=== PATIENT | female | born 1970 | race Caucasian/White ===

== ENCOUNTER 2019-08-11 19:35 | Observation (INO) | payer OTHER, SELFPAY ==
[2019-08-11 19:50] VITALS: BP 138/68; PULSE 103; RESP 18; TEMP 37; O2SAT 97; BMI 30.7
--- NOTE | 2019-08-11 19:51 | ED.NEUROSD ---
HPI - Neuro Symptoms/Deficit General Chief Complaint: Altered Mental Status Stated Complaint: disoriented at times Time Seen by Provider: 08/11/19 19:50 Source: patient and family () Mode of arrival: Ambulatory Limitations: no limitations History of Present Illness HPI Narrative: This is a 49-year-old female who comes to the emergency department with complaint of confusion, a intermittent lateral gaze to the left. Patient's symptoms started on Friday. Her stated he was contacted by her boss, she was part of a teleconference from home. Patient when he arrived seemed confused, her speech seemed a little bit drunk. states that she seemed confused and had difficulty performing certain tasks he did not appreciate any facial droop. Patient has not had any numbness, tingling or weakness in her extremities. She does have little bit of an abnormal gait secondary to hip dislocation was she was young and short leg on the right. But no new changes with her gait. She states that she had a headache that day she had 3 episodes of vomiting. Since then she has not had any additional headache. She has not had any additional vomiting. She had noted that sometimes her days will go to the left of for a couple seconds and then improved. She denies chest pain, shortness of breath, no GI issues. Yesterday she had some very mild symptoms with lateral gaze and some mild pressure on the top of her head. Today she has not had any headache. Her noted that she again seemed a little confused he could get her to open her phone but she could not get on to Facebook or text. At this time she seems back to normal. She does have a history of hypertension, hypothyroidism and is on a estrogen supplement. She is not on any thinners. She has had a hysterectomy, cholecystectomy and surgery for her right hip which dislocated his young child. No tobacco, very rare alcohol with none recently and no illicit. No family history of neurologic events, cardiac issues or similar situations. Related Data Home Medications Medication Instructions Recorded Confirmed estradiol 0.5 mg PO DAILY 08/11/19 08/11/19 felodipine 10 mg PO DAILY 08/11/19 08/11/19 levothyroxine 50 mcg PO DAILY 08/11/19 08/11/19 losartan 100 mg PO DAILY 08/11/19 08/11/19 Allergies Allergy/AdvReac Type Severity Reaction Status Date / Time amoxicillin Allergy Verified 08/11/19 20:57 Review of Systems Review of Systems ROS Unobtainable: All systems reviewed & are unremarkable except as noted in HPI and below Patient History Medical History (Updated 08/11/19 @ 22:55 by Polina Marsh DO) Hypertension (Acute) Hypothyroid (Acute) Family History (Updated 08/12/19 @ 00:16 by DAGOBERTO Escalona) Mother Hypertension Diabetes type 2, controlled Father Hypertension Diabetes mellitus Insulin dependent diabetes mellitus Social History household members: spouse Smoking Status: Never smoker alcohol intake: current Smoking Status: Never smoker alcohol intake frequency: holidays/special occasions only Substance Use Type: does not use Exam Narrative Exam Narrative: GEN: well nourished, well appearing female, alert and oriented x 3, patient appears to be in mild distress. HEENT: Atraumatic, pupils are equal round reactive to light, extraocular movements are intact, nares are clear, TMs are clear with no fluid, there is no conjunctival pallor. Throat is clear without any exudates, erythema, tonsillar enlargement or uvular deviation HEART: Regular rate and rhythm without murmur, clicks, rubs. Pulses are equal in upper and lower extremities LUNGS:Lungs clear to auscultation, no wheezes, rales, crackles, chest moves symmetrically ABD:bowel sounds normal, soft, non-tender, no guarding, rebound, rigidity, no masses noted, no hepatosplenomegaly :No CVA tenderness MSCL: Non-tender, no muscle atrophy, muscles strength 5/5 upper and lower extremities, full range of motion NEURO:CN 2-12 intact, sensation normal, finger nose finger test normal, heel salgado test normal on left, mild difficulty on right but patient has right hip dislocation. Initial Vital Signs Initial Vital Signs: Vital Signs Temperature 98.6 F 08/11/19 19:50 Pulse Rate 103 H 08/11/19 19:50 Respiratory Rate 18 08/11/19 19:50 Blood Pressure 138/68 08/11/19 19:50 Pulse Oximetry 97 08/11/19 19:50 Scores NIH Stroke Scale Level of Conciousness: Alert, keenly responsive Ask month/age: Answers both questions correctly. Open/close eyes, close hand: Performs both tasks correctly Best gaze horizontal: Normal Visual roman: No visual loss Facial palsy: Normal symetrical movement Left arm drift: No drift for full 10 sec Right arm drift: No drift for full 10 sec Left leg drift: No drift for full 10 sec Right leg drift: No drift for full 10 sec Limb ataxia: Absent Sensory on face/arms/legs: Normal, no sensory loss Best language: No aphasia, normal Dysarthria: Normal Extinction or inattention: No abnormality Total NIH Stroke scale score: 0 Course Orders Ordered: ED Orders 08/11/19 20:[address] angio head and neck Stat EKG-12 Lead Stat 08/11/19 20:15 Basic Metabolic Panel Stat Complete Blood Count AUTO DIFF Stat Ethanol (ETOH) Stat Partial Thromboplastin Time Stat Prothrombin Time INR Stat Thyroid Stimulating Hormone Stat Troponin & CK Cardiac Panel Stat 08/11/19 21:22 Urine Drug Screen, Rapid Stat 08/11/19 22:51 MR head/brain wo/w con Stat Acetaminophen (Tylenol) 650 mg PO Q6HR PRN PRN Reason: Fever/Mild Pain (1-3) Last Admin: 08/12/19 01:44 Dose: 650 mg Documented by: TANESHA Enoxaparin Sodium (Lovenox) 40 mg SUBCUT DAILY [facility] Sodium Chloride (Normal Saline 0.9%) 1,000 mls @ 100 mls/hr IV CONT ANTOINE Last Admin: 08/12/19 00:54 Dose: 100 mls/hr Documented by: TANESHA Influenza Virus Vaccine (Flu Vaccine) 0.5 ml IM .ONCE ONE Stop: 08/12/19 09:06 Levothyroxine Sodium (Synthroid) 50 mcg PO QACBREAK [facility] Losartan Potassium (Cozaar) 100 mg PO DAILY [facility] Naloxone HCl (Narcan) 0.2 mg IV Q2MIN PRN PRN Reason: Opiate Reversal Non-Formulary Medication (Felodipine) 10 mg PO DAILY [facility] Ondansetron HCl (Zofran) 4 mg IV Q8HR PRN PRN Reason: Nausea And Vomiting Discontinued Medications Sodium Chloride (Normal Saline 0.9%) 1,000 mls @ 150 mls/hr IV CONT ANTOINE Last Infusion: 08/12/19 00:00 Dose: 0 mls/hr Documented by: Admin: 08/11/19 20:40 Dose: 150 mls/hr Documented by: JONG Vital Signs Vital signs: Vital Signs - 8 hr 08/11/19 19:50 08/11/19 20:46 08/11/19 21:00 Temperature 98.6 F Pulse Rate 103 H 88 84 Respiratory Rate 18 16 17 Blood Pressure 138/68 Blood Pressure [Right Arm] 132/62 138/69 Pulse Oximetry 97 98 98 08/11/19 23:00 Temperature Pulse Rate 79 Respiratory Rate 15 Blood Pressure Blood Pressure [Right Arm] 125/75 Pulse Oximetry 97 MDM - Neuro Symptoms/Deficit Lab Data Attestation: I reviewed the patient's lab results. Result diagrams: 08/11/19 20:15 08/11/19 20:15 Labs: Lab Results 08/11/19 08/11/19 08/11/19 Range/Units 20:15 20:15 20:15 WBC 10.0 (4.5-11.0) X10^3/uL RBC 4.89 (4.0-5.2) X10^6/uL Hgb 14.2 (12.0-16.0) g/dL Hct 43.0 (36-46) % MCV 88.0 (80-100) fL MCH 29.1 (26-34) PG MCHC 33.1 (30-36) % RDW 13.6 (11.6-14.8) % Plt Count 217 (150-400) X10^3/uL Neut % (Auto) 84.5 H (50-75) % Lymph % (Auto) 10.5 L (25-40) % [place]cl[place] % (Auto) 4.6 (3-14) % Eos % (Auto) 0.0 L (2-4) % Baso % (Auto) 0.4 (0-2) % Neut # (Auto) 8400 H (7421-4911) /uL Lymph # (Auto) 1000 L (1238-2806) /uL [place] # (Auto) 500 (0-900) /uL Eos # (Auto) 0 (0-450) /uL Baso # (Auto) 0 (0-100) /uL PT 12.0 (10.1-12.7) SECONDS INR 1.0 (0.9-1.3) APTT 27 (26.4-36.2) SECONDS Sodium (137-145) mmol/L Potassium (3.4-5.1) mmol/L Chloride (98-107) mmol/L Carbon Dioxide (22-32) mmol/L BUN (7-17) mg/dL Creatinine (0.52-1.04) mg/dL Estimated GFR (>60) mL/min BUN/Creatinine Ratio (6-22) Glucose (70-100) mg/dL Calcium (8.4-10.2) mg/dL Total Creatine Kinase 235 H (30-135) U/L CK-MB (CK-2) 0.66 (<2.37) ng/mL CK-MB (CK-2) Rel Index 0.3 L (1.5-5.0) % Troponin I < 0.012 (0.01-0.034) ng/mL TSH (0.47-4.68) uIU/mL U Opiates 300ng/mL cut (Negative) Ur Oxycodone Screen (Negative) Urine Methadone Screen (Negative) Ur Barbiturates Screen (Negative) U Tricyclic Antidepress (Negative) Ur Phencyclidine Scrn (Negative) Ur Amphetamines Screen (Negative) U Methamphetamines Scrn (Negative) Ur MDMA Scrn (Ecstasy) (Negative) U Benzodiazepines Scrn (Negative) Urine Cocaine Screen (Negative) U Marijuana (THC) Screen (Negative) Ethyl Alcohol < 10 ( - 10) mg/dL 08/11/19 08/11/19 08/11/19 Range/Units 20:15 20:15 21:22 WBC (4.5-11.0) X10^3/uL RBC (4.0-5.2) X10^6/uL Hgb (12.0-16.0) g/dL Hct (36-46) % MCV (80-100) fL MCH (26-34) PG MCHC (30-36) % RDW (11.6-14.8) % Plt Count (150-400) X10^3/uL Neut % (Auto) (50-75) % Lymph % (Auto) (25-40) % [place] % (Auto) (3-14) % Eos % (Auto) (2-4) % Baso % (Auto) (0-2) % Neut # (Auto) (5500-9227) /uL Lymph # (Auto) (2720-7285) /uL [place] # (Auto) (0-900) /uL Eos # (Auto) (0-450) /uL Baso # (Auto) (0-100) /uL PT (10.1-12.7) SECONDS INR (0.9-1.3) APTT (26.4-36.2) SECONDS Sodium 142 (137-145) mmol/L Potassium 3.9 (3.4-5.1) mmol/L Chloride 107 (98-107) mmol/L Carbon Dioxide 26 (22-32) mmol/L BUN 19 H (7-17) mg/dL Creatinine 0.79 (0.52-1.04) mg/dL Estimated GFR > 60.0 (>60) mL/min BUN/Creatinine Ratio 24.1 H (6-22) Glucose 110 H (70-100) mg/dL Calcium 10.1 (8.4-10.2) mg/dL Total Creatine Kinase (30-135) U/L CK-MB (CK-2) (<2.37) ng/mL CK-MB (CK-2) Rel Index (1.5-5.0) % Troponin I (0.01-0.034) ng/mL TSH 2.60 (0.47-4.68) uIU/mL U Opiates 300ng/mL cut Negative (Negative) Ur Oxycodone Screen Negative (Negative) Urine Methadone Screen Negative (Negative) Ur Barbiturates Screen Negative (Negative) U Tricyclic Antidepress Negative (Negative) Ur Phencyclidine Scrn Negative (Negative) Ur Amphetamines Screen Negative (Negative) U Methamphetamines Scrn Negative (Negative) Ur MDMA Scrn (Ecstasy) Negative (Negative) U Benzodiazepines Scrn Negative (Negative) Urine Cocaine Screen Negative (Negative) U Marijuana (THC) Screen Negative (Negative) Ethyl Alcohol ( - 10) mg/dL Urine Dip Bedside Urine Glucose Negative Bedside Urine Bilirubin - Negative Bedside Urine Ketone +/- 5 Urine Specific [place] 1.015 Bedside Urine pH 6.0 Bedside Urine Protein +/- 15 Bedside Urine Urobilinogen - Negative Bedside Urine Nitrite - Negative Bedside Urine Leukocytes - Negative Esterase Imaging Data CT scan - head: Radiologist's Impression: [address] [address] XRay Report Signed Patient: Vinh Dan VMR#: [id number] : 05/23/1942Acct:[id number] Age/Sex: 77 / MDate of Service: 08/11/19 Loc: ED Accession Number: [id number] Procedure: XR hip w pel if done RT 2V Ordering Provider: Polina Marsh D.O. PROCEDURE: XR HIP W PEL IF DONE RT 2V INDICATIONS: swelling of right thigh, pain of thigh TECHNIQUE: AP pelvis with lateral view(s) of the right hip(s). COMPARISON: None. FINDINGS: Bones: No fractures or dislocations. Pelvic ring appears intact. Mild to moderate right hip joint osteoarthritic changes are seen. No evidence of avascular necrosis. No suspicious bony lesions. Soft tissues: The visualized bowel gas pattern is normal. No suspicious soft tissue calcifications. IMPRESSION: Mild to moderate right hip joint osteoarthritis. No acute hip fracture or dislocation. No evidence of avascular necrosis. Dictated by: Azam Schwartz M.D. on 08/11/2019 at 19:51 Approved by: Azam Schwartz M.D. on 08/11/2019 at 19:52 CTA - brain/neck: Radiologist's Impression: [place] [address] CT Scan Report Signed Patient: Zo Villasenor LMR#: [id number] : 1970Acct:[id number] Age/Sex: 49 / FDate of Service: 08/11/19 Loc: ED Accession Number: [id number] Procedure: CT angio head and neck Ordering Provider: Polina Marsh D.O. PROCEDURE: CT ANGIO HEAD AND NECK INDICATIONS: confusion, clayton, vomited friday, lateral gaze intermittent TECHNIQUE: Pre-contrast 4.5 mm thick sections acquired from the foramen magnum to the vertex. After the administration of intravenous contrast, 1 mm thick sections acquired from the aortic arch through the [place] of [place]. Post-contrast 4.5 mm thick sections then re-acquired from the foramen magnum to the vertex. 3-dimensional jnfksrw-wuftqwmru-uxpnwfwpav (MIP) and/or volume rendering reformats were acquired of the central intracranial vasculature and neck separately. COMPARISON: None. FINDINGS: Image quality: Excellent. BRAIN: CSF spaces: Ventricles are normal in size and shape. Basal cisterns are patent. No extra-axial fluid collections. Brain: No midline shift. No intracranial bleeds or masses. Hanna-white matter interface appears intact. No area of abnormal intracranial enhancement is seen. Skull and face: Calvarium and facial bones appear intact, without suspicious lesions. Orbits appear normal. Sinuses: Sinuses and mastoids are clear. HEAD CT ANGIOGRAPHY: Anterior circulation: Intracranial internal carotid arteries are normal in size and flow. The flow within the paired anterior cerebral arteries is normal and symmetric. The flow within the middle cerebral arteries is normal and symmetric. The anterior communicating artery is seen. No aneurysms are seen. Posterior circulation: Visualized portions of the vertebral arteries demonstrate normal caliber, and join to form a normal appearing basilar artery. Flow within the posterior cerebral arteries is normal and symmetric. No aneurysms are seen. NECK CT ANGIOGRAPHY: Carotid system: The great vessels demonstrate a conventional anatomy as they arise from the aortic arch. The origins of the common carotid arteries appear patent. The common carotid arteries demonstrate normal caliber and courses. The bifurcation regions are both widely patent. The internal carotid arteries demonstrate normal calibers and courses. Posterior circulation: The origins of the vertebral arteries both appear widely patent. The more superior extracranial portions of both vertebral arteries also demonstrate normal courses and calibers. They join to form a normal appearing basilar artery. Soft tissues: Visualized neck soft tissues demonstrate no suspicious abnormalities. Bones: No suspicious bony lesions. Visualized cervical spine appears normally aligned. IMPRESSION: 1. No CT evidence of acute intracranial pathology. No area of abnormal intracranial enhancement. 2. No hemodynamically significant stenosis or aneurysm is seen in intracranial circulation. 3. No hemodynamically significant stenosis is seen in bilateral neck arteries. Any quantitative measurements of stenosis were performed using NASCET criteria. Dictated by: Azam Schwartz M.D. on 08/11/2019 at 20:59 Approved by: Azam Schwartz M.D. on 08/11/2019 at 21:04 ECG Data Attestation: I personally reviewed and interpreted this ECG as follows: Interpretation: Sinus rhythm with sinus arrhythmia rate of 74 P are 134 QRS [address] elevation or depression noted. MDM Narrative Medical decision making narrative: Patient comes in with a description of confusion or disorientation. And also occasional lateral gaze deviation. Sounds like it is very short-lived. Patient does not have any other clear localized neurologic findings and her NIH scale today is 0. Patient's head CT and angiography are negative no significant stenosis. CBC is normal with a left shift of 84%. Coags are negative, BUN 19 glucose is 110 with a total CK of 235 and a negative-troponin. TSH shows no acute change, EKG no change. Patient seems less likely to have a stroke or TIA, she did have 1 episode of the lateral gaze on exam but was very short lived and difficult to truly evaluate. Patient case was discussed with Dr. Crystal Hollins from [facility]. She recommends MRI with and without of the brain for evaluation of stroke although this would be an unlikely finding. If this is negative she would recommend next lumbar puncture for evaluation of possibly an atypical Guillain-Windsor or myasthenia gravis presentation. Suspicion for infectious causes are low at this time. Discussed with JOHN Olivia who plans to include possible seizure in differential as well. Discharge Plan Departure Patient Disposition: Admitted as Observation Clinical Impression: Intermittent confusion, Alternating skew deviation on lateral gaze Discharge Date/Time: 08/12/19 00:00 Referrals: London Bradford MD [Primary Care Provider] - Admit Date/Time: 08/11/19 23:00 Admit Provider: Kaya Olivia
--- NOTE | 2019-08-11 20:13 | DI.CT.S_ITS ---
PROCEDURE: CT STROKE INDICATIONS: confusion, clayton, vomited friday, lateral gaze intermittent TECHNIQUE: Noncontrast 4.5 mm thick angled axial sections acquired from the foramen magnum to the vertex, with coronal reformats. For radiation dose reduction, the following was used: automated exposure control, adjustment of mA and/or kV according to patient size. COMPARISON: None. FINDINGS: Image quality: Excellent. CSF spaces: Basal cisterns are patent. No extra-axial fluid collections. Ventricles are normal in size and shape. Brain: No midline shift. No intracranial masses or hemorrhage. Hanna-white matter interface is normal. Skull and face: Calvarium and visualized facial bones are intact, without suspicious lesions. Sinuses: Visualized sinuses and mastoids are clear. IMPRESSION: No CT evidence of acute intracranial pathology. Findings were reported to Dr. Marsh in the ER at 8:42 PM on 08/11/19. This study fulfills neurological imaging criteria for inclusion or exclusion of acute stroke therapies based on available published neurological imaging guidelines. Dictated by: Azam Schwartz M.D. on 08/11/2019 at 20:41 Approved by: Azam Schwartz M.D. on 08/11/2019 at 20:42
--- NOTE | 2019-08-11 20:13 | DI.CT.S_ITS ---
PROCEDURE: CT ANGIO HEAD AND NECK INDICATIONS: confusion, clayton, vomited stefany, lateral gaze intermittent TECHNIQUE: Pre-contrast 4.5 mm thick sections acquired from the foramen magnum to the vertex. After the administration of intravenous contrast, 1 mm thick sections acquired from the aortic arch through the [place] of [place]. Post-contrast 4.5 mm thick sections then re-acquired from the foramen magnum to the vertex. 3-dimensional inrrnzk-ddtsisgbm-hyddrxuijm (MIP) and/or volume rendering reformats were acquired of the central intracranial vasculature and neck separately. COMPARISON: None. FINDINGS: Image quality: Excellent. BRAIN: CSF spaces: Ventricles are normal in size and shape. Basal cisterns are patent. No extra-axial fluid collections. Brain: No midline shift. No intracranial bleeds or masses. Hanna-white matter interface appears intact. No area of abnormal intracranial enhancement is seen. Skull and face: Calvarium and facial bones appear intact, without suspicious lesions. Orbits appear normal. Sinuses: Sinuses and mastoids are clear. HEAD CT ANGIOGRAPHY: Anterior circulation: Intracranial internal carotid arteries are normal in size and flow. The flow within the paired anterior cerebral arteries is normal and symmetric. The flow within the middle cerebral arteries is normal and symmetric. The anterior communicating artery is seen. No aneurysms are seen. Posterior circulation: Visualized portions of the vertebral arteries demonstrate normal caliber, and join to form a normal appearing basilar artery. Flow within the posterior cerebral arteries is normal and symmetric. No aneurysms are seen. NECK CT ANGIOGRAPHY: Carotid system: The great vessels demonstrate a conventional anatomy as they arise from the aortic arch. The origins of the common carotid arteries appear patent. The common carotid arteries demonstrate normal caliber and courses. The bifurcation regions are both widely patent. The internal carotid arteries demonstrate normal calibers and courses. Posterior circulation: The origins of the vertebral arteries both appear widely patent. The more superior extracranial portions of both vertebral arteries also demonstrate normal courses and calibers. They join to form a normal appearing basilar artery. Soft tissues: Visualized neck soft tissues demonstrate no suspicious abnormalities. Bones: No suspicious bony lesions. Visualized cervical spine appears normally aligned. IMPRESSION: 1. No CT evidence of acute intracranial pathology. No area of abnormal intracranial enhancement. 2. No hemodynamically significant stenosis or aneurysm is seen in intracranial circulation. 3. No hemodynamically significant stenosis is seen in bilateral neck arteries. Any quantitative measurements of stenosis were performed using NASCET criteria. Dictated by: Azam Schwartz M.D. on 08/11/2019 at 20:59 Approved by: Azam Schwartz M.D. on 08/11/2019 at 21:04
--- NOTE | 2019-08-11 20:35 | PC.NURSE ---
Pt states confusion with intermittent L lateral eye gaze since last Friday, seen Friday at [facility]. Pt reports pt didn't remember how to use her phone, and had stroke workup which was negative and outpt MRI appt tomorrow. PT reporting today dizziness, vertigo and a small episode of urinary incontinence and disorientation after waking from nap from [id number]. Pt at baseline gait per and pt, hx of hip dislocation. Denies any speech changes, facial droop or numbness/tingling in extremities. Not on blood thinners and states she is feeling alot better and more alert since her arrival. at bedside.
[2019-08-11] MEDS: SODIUM CHLORIDE 0.9% 1,000 ML 150 ML IV (20:40)
[2019-08-11 20:42] LABS: Add Manual Diff / Slide Review NO; Basophils Absolute Auto 0 /uL (0-100); Basophils Percent Auto 0.4 % (0-2); Eosinophils Absolute Auto 0 /uL (0-450); Hemoglobin 14.2 g/dL (12.0-16.0); Lymphocytes Absolute Auto 1000 /uL (1100-4500); Lymphocytes Percent Auto 10.5 % (25-40); Mean Corpuscular HGB Conc 33.1 % (30-36); Mean Corpuscular Hemoglobin 29.1 PG (26-34); Monocytes Absolute Auto 500 /uL (0-900); Monocytes Percent Auto 4.6 % (3-14); Neutrophils Absolute Auto 8400 /uL (1500-7000); Neutrophils Percent Auto 84.5 % (50-75); Platelet Count 217 X10^3/uL (150-400); Red Blood Cell Count 4.89 X10^6/uL (4.0-5.2); Red Cell Distribution Width 13.6 % (11.6-14.8)
[2019-08-11 20:46] VITALS: BP 132/62; PULSE 88; RESP 16; O2SAT 98
[2019-08-11 20:48] LABS: PTT Partial Thromboplastin Tim 27 SECONDS (26.4-36.2)
[2019-08-11 20:52] LABS: Creatine Kinase 235 U/L (30-135); Ethanol (ETOH) < 10 mg/dL
[2019-08-11 20:53] LABS: BUN Creatinine Ratio 24.1 (6-22); Blood Urea Nitrogen 19 mg/dL (7-17); Calcium 10.1 mg/dL (8.4-10.2); Carbon Dioxide 26 mmol/L (22-32); Chloride 107 mmol/L (98-107); Estimated Glomerular Filt Rate > 60.0 mL/min (>60); Glucose 110 mg/dL (70-100); HEMOLYSIS < 15 (0-50); Potassium 3.9 mmol/L (3.4-5.1); Sodium 142 mmol/L (137-145)
[2019-08-11 21:00] VITALS: BP 138/69; PULSE 84; RESP 17; O2SAT 98
[2019-08-11 21:04] LABS: Troponin I < 0.012 ng/mL (0.01-0.034)
[2019-08-11 21:07] LABS: CKMB % Relative Index 0.3 % (1.5-5.0); Creatine Kinase MB 0.66 ng/mL (<2.37)
[2019-08-11 21:39] LABS: Ur Creatinine 20 (Normal); Ur Specific Gravity 1.025 (Normal); Urine pH 5 (Normal)
[2019-08-11 21:40] LABS: UR Morphine/Opiate cutoff 300 Negative (Negative); Urine Amphetamines Negative (Negative); Urine Barbiturates Negative (Negative); Urine Benzodiazepines Negative (Negative); Urine Cocaine Negative (Negative); Urine MDMA Negative (Negative); Urine Methadone Negative (Negative); Urine Methamphetamines Negative (Negative); Urine Oxycodone Negative (Negative); Urine Phencyclidine Negative (Negative); Urine Tetrahydrocannabinol Negative (Negative); Urine Tricyclic Antidepressant Negative (Negative)
--- NOTE | 2019-08-11 22:51 | DI.MRI.S_ITS ---
PROCEDURE: MR HEAD/BRAIN WO/W CON INDICATIONS: intermittent confusion, lateral gaze left eye intermittent TECHNIQUE: Noncontrast axial T1 spin echo, axial T2 fast spin echo, sagittal and axial FLAIR, coronal T2 fast spin echo, axial gradient echo, axial diffusion and ADC through the brain. After the administration of contrast, axial and coronal 3D VIBE or T1 spin echo with fat saturation through the brain. COMPARISON: [facility], CT, CT ANGIO HEAD AND NECK, 08/11/2019, 20:32. [facility], CT, CT STROKE, 08/11/2019, 20:12. FINDINGS: Image quality: Excellent. CSF Spaces: Basal cisterns are patent. No extra-axial fluid collections. Ventricles are normal in size and shape. Brain: No midline shift. No intracranial bleeds or masses. No abnormal intracranial enhancement. The brainstem appears normal. Diffusion-weighted images demonstrate no acute ischemic insults. No chronic ischemic insults. Normal intravascular flow voids are present. Skull and face: Calvarial marrow is normal in signal. Orbits appear normal. Sinuses: There is left maxillary sinus mucosal thickening. The mastoids appear clear. IMPRESSION: 1. No acute intracranial abnormalities. 2. Left maxillary sinus mucosal thickening. Dictated by: Jean Scanlon M.D. on 08/12/2019 at 11:20 Approved by: Jean Scanlon M.D. on 08/12/2019 at 11:25
[2019-08-11 23:00] VITALS: BP 125/75; PULSE 79; RESP 15; O2SAT 97
--- NOTE | 2019-08-12 00:10 | P.HP_ITS ---
History of Present Illness History of Present Illness Date Patient Seen: 08/11/19 Time Patient Seen: 23:30 Chief complaint: disoriented at times Narrative: Zo Villasenor is a 49-year-old female with diagnoses of hypertension, hypothyroidism presented with a 3 day history of headaches, confusion, left- sided weakness, and visual changes. Her symptoms started of this past Friday which was 2 days ago with a really bad headache that lasted for 3 hours. 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 She stated that she could not figure out how to turn on her computer or operate her cellphone. She then broke for lunch and apparently did not log but back in, her inspection and testing supervisor became concerned and called her at his workplace. On Friday she took the day off and started to notice that her left eye started to twitch. Today she resumed working at home and then around noon took a nap and apparently slept until 6:00 p.m. she then woke up with pressure on the top of her head. Her came from from work and found her to be confused again and not really responding. She was had urinated on herself and had bit her lower lip. Today he stated that she started to have bilateral abnormal eye movements he refers to as looking like a type brighter moving back and forth. Stated that she was dizzy when she woke up and confused. She denies fever, shortness of breath, palpitations, she did wake up feeling nauseous. She had 1 incontinence episode but denies any diarrhea or constipation. Patient History Medical History (Updated 08/11/19 @ 22:55 by Polina Marsh DO) Hypertension (Acute) Hypothyroid (Acute) Family & Social History Family History (Updated 08/12/19 @ 00:16 by DAGOBERTO Escalona) Mother Hypertension Diabetes type 2, controlled Father Hypertension Diabetes mellitus Insulin dependent diabetes mellitus Safety & Behavioral: Feels Safe in Current Yes Environment Been Physically Hurt or No Threatened By a Person Tobacco & Substance use: Smoking Status Never smoker alcohol intake frequency holiday/special occasion Substance Use Type does not use Meds Home Medications and Allergies Home Medications Medication Instructions Recorded Confirmed Type estradiol 0.5 mg PO DAILY 08/11/19 08/11/19 History felodipine 10 mg PO DAILY 08/11/19 08/11/19 History levothyroxine 50 mcg PO DAILY 08/11/19 08/11/19 History losartan 100 mg PO DAILY 08/11/19 08/11/19 History Allergies Allergy/AdvReac Type Severity Reaction Status Date / Time amoxicillin Allergy Verified 08/11/19 20:57 Review of Systems Review of Systems ROS: Yes All systems reviewed with the patient and are negative except as otherwise documented Exam Vital Signs (past 8 hours): - 08/11/19 19:50 08/11/19 20:46 08/11/19 21:00 Temperature 98.6 F Pulse Rate 103 H 88 84 Respiratory Rate 18 16 17 Blood Pressure 138/68 Blood Pressure [Right Arm] 132/62 138/69 Pulse Oximetry 97 98 98 08/11/19 23:00 Temperature Pulse Rate 79 Respiratory Rate 15 Blood Pressure Blood Pressure [Right Arm] 125/75 Pulse Oximetry 97 Oxygen Delivery Method Room Air Narrative Exam Narrative: Gen: Alert, oriented, well-developed 49 y.o. female, appears fatigued HEENT: normocephalic, atraumatic, conjunctiva clear, sclera non-icteric, oral mucosa pink and moist Neck: supple, full ROM Resp: Lungs CTA, non-labored breathing CV: RRR, no murmur or rubs Abd: soft, non-tender, normoactive BTs Skin: no lesions or rashes, dry and intact Neuro: Has periodic episodes of horizontal nystagmus worse laterally, triggered when waking up or opening eyes after prolonged closure. Alert and oriented X 4 w/no focal deficits Extremities: moves all 4 extremities, is ambulatory, negative Lavon?s sign Psyche: normal mood and affect. Objective Labs Result Diagrams: 08/11/19 20:15 08/11/19 20:15 Labs: Laboratory Results - last 24 hr 08/11/19 08/11/19 08/11/19 20:15 20:15 20:15 WBC 10.0 RBC 4.89 Hgb 14.2 Hct 43.0 MCV 88.0 MCH 29.1 MCHC 33.1 RDW 13.6 Plt Count 217 Neut % (Auto) 84.5 H Lymph % (Auto) 10.5 L Lawrence % (Auto) 4.6 Eos % (Auto) 0.0 L Baso % (Auto) 0.4 Neut # (Auto) 8400 H Lymph # (Auto) 1000 L Lawrence # (Auto) 500 Eos # (Auto) 0 Baso # (Auto) 0 PT 12.0 INR 1.0 APTT 27 Sodium Potassium Chloride Carbon Dioxide BUN Creatinine Estimated GFR BUN/Creatinine Ratio Glucose Calcium Total Creatine Kinase 235 H CK-MB (CK-2) 0.66 CK-MB (CK-2) Rel Index 0.3 L Troponin I < 0.012 TSH U Opiates 300ng/mL cut Ur Oxycodone Screen Urine Methadone Screen Ur Barbiturates Screen U Tricyclic Antidepress Ur Phencyclidine Scrn Ur Amphetamines Screen U Methamphetamines Scrn Ur MDMA Scrn (Ecstasy) U Benzodiazepines Scrn Urine Cocaine Screen U Marijuana (THC) Screen Ethyl Alcohol < 10 08/11/19 08/11/19 08/11/19 20:15 20:15 21:22 WBC RBC Hgb Hct MCV MCH MCHC RDW Plt Count Neut % (Auto) Lymph % (Auto) Lawrence % (Auto) Eos % (Auto) Baso % (Auto) Neut # (Auto) Lymph # (Auto) Lawrence # (Auto) Eos # (Auto) Baso # (Auto) PT INR APTT Sodium 142 Potassium 3.9 Chloride 107 Carbon Dioxide 26 BUN 19 H Creatinine 0.79 Estimated GFR > 60.0 BUN/Creatinine Ratio 24.1 H Glucose 110 H Calcium 10.1 Total Creatine Kinase CK-MB (CK-2) CK-MB (CK-2) Rel Index Troponin I TSH 2.60 U Opiates 300ng/mL cut Negative Ur Oxycodone Screen Negative Urine Methadone Screen Negative Ur Barbiturates Screen Negative U Tricyclic Antidepress Negative Ur Phencyclidine Scrn Negative Ur Amphetamines Screen Negative U Methamphetamines Scrn Negative Ur MDMA Scrn (Ecstasy) Negative U Benzodiazepines Scrn Negative Urine Cocaine Screen Negative U Marijuana (THC) Screen Negative Ethyl Alcohol Assessment & Plan Assessment & Plan narrative: Zo Villasenor will be admitted overnight for observation status and to undergo a MRI of the head with and without contrast in the morning. 1. Left-sided weakness with an abnormal ocular movement disorder, acute, present on admission - Stroke needs to be ruled out prior to evaluation for other possible neurologic al conditions - Differential diagnosis includes Guillain-[place], Myasthenia gravis, seizure disorder, hemiplegic migraine - Neurology was consulted by the ED who spoke to Crystal Hollins - MRI with and without contrast of the head. 2. Essential hypertension, appears to be well controlled and chronic, present on admission - Continue her home dose of Fallot to pain 10 mg p.o. daily and losartan 100 mg p.o. daily 3. Hypothyroidism, chronic, well controlled and present on admission - TSH was normal - Continue home dose of levothyroxine 50 mcg p.o. daily FEN: IV normal saline at 100 ml/hour, low sodium diet, chemistries in the am Patient is placed into observation as her stay is not likely to exceed 2 midnights. VTE Prophylaxis: Bilateral SCDs, enoxaparin 40 mg subcu daily Medications reconciled: Yes Disposition: Probable discharge home with neurology follow-up Code Status: Full code
[2019-08-12 00:30] VITALS: BP 142/81; PULSE 89; RESP 20; TEMP 36.6; O2SAT 97
[2019-08-12 00:48] VITALS: O2SAT 98
[2019-08-12 00:54] VITALS: BMI 39.8
[2019-08-12] MEDS: SODIUM CHLORIDE 0.9% 1,000 ML 100 ML IV (00:54)
[2019-08-12] MEDS: ACETAMINOPHEN 325 MG TABLET 650 MG PO ×2 (01:44→09:07)
--- NOTE | 2019-08-12 02:02 | PC.ADMIT ---
Patient admitted to room 208 per stretcher from ER. Is alert and oriented. Has been having some intermittent left gaze extraocular movements. Breath sounds CTA with RA sat of 98%. HRR; telemetry reading was SR. Denies nausea. BT present and abdomen is soft. Reports episode of incontinence prior to admission but normally is continent of B&B. Is able to move self in bed. Providing SBA when up to bathroom for safety. Patient does have an unsteady gait which is her normal; denies weakness. Complains of mild pressure type discomfort in head so medicated with Tylenol per her request. Calf SCD's placed bilateral. Seizure pads in place. NIH is 0. Reviewed plan of care with patient; verbalizes understanding. Instructed in use of call light and bed controls. [facility] Admission Note: The patient,Zo Villasenor,49 y/o, was given written information regarding hospital policies, unit procedures and contact persons. Patient's smoking status: Never smoker. Vital Signs - 8 hr 08/11/19 19:50 08/11/19 20:46 08/11/19 21:00 Temperature 98.6 F Pulse Rate 103 H 88 84 Respiratory Rate 18 16 17 Blood Pressure 138/68 Blood Pressure [Right Arm] 132/62 138/69 Pulse Oximetry 97 98 98 08/11/19 23:00 08/12/19 00:48 Temperature Pulse Rate 79 Respiratory Rate 15 Blood Pressure Blood Pressure [Right Arm] 125/75 Pulse Oximetry 97 98
[2019-08-12 05:49] VITALS: BP 116/80; PULSE 86; RESP 18; TEMP 36.9; O2SAT 95
[2019-08-12 06:00] LABS: Add Manual Diff / Slide Review NO; Basophils Absolute Auto 0 /uL (0-100); Basophils Percent Auto 0.3 % (0-2); Eosinophils Absolute Auto 100 /uL (0-450); Hematocrit 37.4 % (36-46); Hemoglobin 12.5 g/dL (12.0-16.0); Lymphocytes Absolute Auto 2000 /uL (1100-4500); Lymphocytes Percent Auto 23.2 % (25-40); Mean Corpuscular HGB Conc 33.3 % (30-36); Mean Corpuscular Hemoglobin 29.5 PG (26-34); Mean Corpuscular Volume 88.5 fL (80-100); Monocytes Absolute Auto 600 /uL (0-900); Monocytes Percent Auto 7.1 % (3-14); Neutrophils Absolute Auto 5900 /uL (1500-7000); Neutrophils Percent Auto 68.4 % (50-75); Platelet Count 194 X10^3/uL (150-400); Red Blood Cell Count 4.23 X10^6/uL (4.0-5.2); Red Cell Distribution Width 13.2 % (11.6-14.8); White Blood Cell Count 8.6 X10^3/uL (4.5-11.0)
[2019-08-12 06:03] LABS: BUN Creatinine Ratio 24.3 (6-22); Blood Urea Nitrogen 18 mg/dL (7-17); Calcium 9.1 mg/dL (8.4-10.2); Carbon Dioxide 27 mmol/L (22-32); Chloride 110 mmol/L (98-107); Cholesterol 144 mg/dL (140-199); Estimated Glomerular Filt Rate > 60.0 mL/min (>60); Glucose 87 mg/dL (70-100); HDL Cholesterol 43 mg/dL (40-60); HEMOLYSIS < 15 (0-50); LDL Cholesterol Calculated 82 mg/dL (<100); Magnesium 1.8 mg/dL (1.6-2.3); Potassium 3.6 mmol/L (3.4-5.1); Sodium 141 mmol/L (137-145); Triglycerides 95 mg/dL (35-150)
[2019-08-12] MEDS: LEVOTHYROXINE 50 MCG TABLET PO (06:06)
[2019-08-12 07:34] VITALS: O2SAT 95
[2019-08-12 07:55] VITALS: BP 136/80; PULSE 85; RESP 17; TEMP 36.8; O2SAT 97
[2019-08-12] MEDS: ENOXAPARIN 40 MG/0.4 ML SYRINGE SUBCUT (09:05)
[2019-08-12] MEDS: FELODIPINE ER 5 MG TAB 10 MG PO (09:05)
--- NOTE | 2019-08-12 09:48 | OT.IP.EVAL ---
Past Medical History (Last Updated 08/11/19 @ 20:27 by Polina Marsh DO) Hypertension (Acute) Hypothyroid (Acute) Occupational Therapy Inpatient Evaluation/Re-Eval M1 PT/OT-IP Prior Functional Status Start: 08/12/19 08:32 Freq: NEEDED Status: Active Protocol: Document 08/12/19 10:50 CGR (Rec: 08/12/19 11:15 CGR [id number]) Medical Review Prior Functional Status Medical History Reviewed Yes Communication Pt is an effective verbal communicator. Mobility and Gait Pt was IND in all mobility. Pt has a limp from a childhood ( age 9) injury to her R hip. Activities of Daily Living and IADL's Pt was IND in all ADLs Social History Household Members spouse Living Arrangements House Number of Floors (Floors) One Floor Number of Stairs To Enter/Railing? 2 stairs to enter with b railing that are placed close enough to be used at the same time. Home Environment High Toilet,Walk in Shower Home Equipment Grab Bars Near Toilet,Grab Bars In Shower Employment Status Range [employer] Employed Additional Social History Comment Pt is currently working from home. M2 OT-IP Current Condition Start: 08/12/19 10:50 Freq: Status: Active Protocol: Document 08/12/19 10:50 CGR (Rec: 08/12/19 11:15 CGR [id number]) Occupational Therapy Current Condition Current Condition Evaluation Date 08/12/19 Treatment Diagnosis Possible CVA Diagnosis Onset Date 08/11/19 M3 OT- IP Subjective and Pain Start: 08/12/19 10:50 Freq: Status: Active Protocol: Document 08/12/19 10:50 CGR (Rec: 08/12/19 11:15 CGR [id number]) OT- Subjective Occupational Therapy Visit Type Type Initial Evaluation Visit Start Time 09:29 Visit Stop Time 09:48 Total Visit Minutes 19 Occupational Therapy Visit Comments Patient Comments Pt stating that her is waiting outside to get items to her. OT Pain Assessment Pain When Pain Assessed At Rest Pain Present Pain Present Denied Pain M4 OT- IP ADL's Start: 08/12/19 10:50 Freq: Status: Active Protocol: Document 08/12/19 10:50 CGR (Rec: 08/12/19 11:15 CGR [id number]) OT [id number] General Evaluation Self-Feeding Ability Independent OT ADL-Grooming Comments OT Grooming Comments Pt declined to perform at this time OT ADL-Oral Care Comments Oral Care Comments Pt declined to perform at this time OT ADL-Dressing General Eval Lower Body Dressing Ability Independent Areas Needing Assistance Socks Comments OT Dressing Comments Pt needs extra time and perform sitting on bed d/t previous hip injury and painful L knee. OT ADL-Toileting General Evaluation Toileting Ability Independent Devices Toileting Assistive Devices Grab Bars OT ADL-Bathing Comments OT Bathing Comments Not performed in this session. M5 OT- IP IADL's Start: 08/12/19 10:50 Freq: Status: Active Protocol: Document 08/12/19 10:50 CGR (Rec: 08/12/19 11:15 CGR [id number]) OT-Instrumental Activities of Daily Living Deficits IADL Deficits Identified No Deficits Home Safety Awareness Awareness of Need for Assistance at Home Good Awareness Ability to Problem Solve Emergency Able to Problem Solve Situations Medication Management Medication Management No Deficits Identified Money Management Money Management No Deficits Identified Meal Preparation Meal Preparation No Deficits Identified Public Address Systems Mechanic Public Address Systems Mechanic No Deficits Identified Driving Driving Caregiver Provides Assist M6 OT- IP Functional Cognition Start: 08/12/19 10:50 Freq: Status: Active Protocol: Document 08/12/19 10:50 CGR (Rec: 08/12/19 11:15 CGR [id number]) Cognitive Factors Limiting Selfcare Function Cognitive Ability Level of Alertness Alert Patient Orientation Name,Age,Birthday,Month,Date, Year,Day of Week,Place, Situation Attention Span Ability Capable of Focused Attention, Capable of Sustained Attention Ability to Follow Commands Able to Follow Multi-Step Commands Memory Description No Deficits Noted Safety Awareness No Deficits Noted Problem Solving Ability No deficits Noted Executive Function Ability No Deficits Noted Abstract Thinking Ability No Deficits Noted OT- Vision and Hearing OT- Hearing Assessment OT- Hearing Assessment WFL OT- Vision Assessment Visual Acuity WFL Visual Attentiveness WFL Occular Pursuits Impaired Horizontal Visual Convergence Impaired Visual Méndez WFL Diplopia Absent Visual Spacial Neglect Not Applicable Vision Assessment Comments Pt presents with ocular motor changes to the L eye. Pt will benefit from exercises to improve the strength and response of the L eye. Educated pt on activities to perform for visual motor. M7 OT- IP Mobility and Balance Start: 08/12/19 10:50 Freq: Status: Active Protocol: Document 08/12/19 10:50 CGR (Rec: 08/12/19 11:15 CGR [id number]) OT- Bed Mobility Assessment Rolling Type of Rolling Roll to Right Level of Assistance Independent Supine to Sit Supine to Sit Assist Independent Sit to Supine Sit to Supine Assist Independent Scooting Scooting to Edge of Bed Independent OT-Transfer Assessment Sit to and From Stand Sit to and from Stand Independent Transfers Transfer Ability Independent Technique Transfer Destination Bed,Chair,Toilet Transfer Technique Stand Step Pivot Devices Transfer Assistive Devices None Comments Mobility Comments Pt ambulates with a limp and used the GB in the bathroom to assist in pulling up. Pt states that this is her baseline since she was a child when she had an injury to the hip. OT- Gait Assessment Gait Gait Assistance Required: Independent Assistive Devices Assistive Device None OT- Balance Assessment Sitting Balance and Reactions Static Sitting Balance Ability Normal Dynamic Sitting Balance Ability Normal M8 OT- IP Objective Assessments Start: 08/12/19 10:50 Freq: Status: Active Protocol: Document 08/12/19 10:50 CGR (Rec: 08/12/19 11:15 CGR [id number]) OT Gross Range of Motion Upper Extremity Range of Motion Assessment Within Functional Limits OT Strength Upper Extremity Strength Assessment Within Functional Limits Comments Strength Comments Pt's left hand is slightly weaker than her right which is typical for a right handed person. Grossly 4-/5 indicating poor strength throughout. OT- Coordination Assessment Upper Extremity Finger to Nose Test Within Functional Limits Finger Tapping Test Within Functional Limits OT-Muscle Tone Assessment Muscle Tone WNL Yes OT Sensation Assessment Comments Summary Comments Sensation typical per pt. Edema Edema Absent M9 OT- IP Assessment and Plan Start: 08/12/19 10:50 Freq: Status: Active Protocol: Document 08/12/19 10:50 CGR (Rec: 08/12/19 11:15 CGR [id number]) OT Summary Assessment and Plan Potential Rehabilitation Potential Excellent Analytic Complexity at Evaluation Low Summary OT Impairments Strength Progress Towards Goals Progressing Toward Goals Assessment Summary Pt presents as a low complexity evaluation with ocular motor deficits noted to the L eye and UE weakness ( 4-/5) bilaterally. Given the extent that pt uses her arms for transfers, pt may have some new weakness to BUE. Pt will benefit from continued OT services while hospitalized. Goals OT-Other Goals Pt will be able to perform ocular motor exercises without VC. Pt will increase UE strength to 4/5. Days to Meet Goals 3 Frequency of Treatment Frequency Of Treatment Once a Day Treatment Plan OT Treatment Plan Therapeutic Exercises Other Treatment Recommendations and Next ocular motor exercises and UE Treatment Focus exercises. Discharge Recommendations OT Discharge Recommendations Home with Assistance Home Equipment Needs No equipment needs on this date. Transportation Needs at Discharge Private Vehicle
--- NOTE | 2019-08-12 11:24 | PC.NURSE ---
AM Shift. pt AO and receptive to care. Up SBA to BR. Reporting mild headache and administered 650mg Tylenol and improving. OT worked with patient in room. pt went down to imaging for MRI and back in room. PT worked with patient in room and around hallways. Lungs clear and diminished. Tele reading NSR. NS infusing 100/hr (saline locked for transfers) to left AC area. Plan is to DC today with possible neuro f/u. Dietary in room currently.
--- NOTE | 2019-08-12 11:55 | PT.IIE ---
Medical History (Last Updated 08/11/19 @ 20:27 by Polina Marsh DO) Hypertension (Acute) Hypothyroid (Acute) Physical Therapy Inpatient Evaluation/Re-Eval M1 PT/OT-IP Prior Functional Status Start: 08/12/19 08:32 Freq: NEEDED Status: Active Protocol: Document 08/12/19 11:31 AW (Rec: 08/12/19 11:55 AW [id number]) Medical Review Prior Functional Status Medical History Reviewed Yes Communication Pt is an effective verbal communicator. Mobility and Gait Pt was IND in all mobility. Pt has a limp from a childhood ( age 9) injury to her R hip. Activities of Daily Living and IADL's Pt was IND in all ADLs Social History Household Members spouse Living Arrangements House Number of Floors (Floors) One Floor Number of Stairs To Enter/Railing? 2 stairs to enter with b railing that are placed close enough to be used at the same time. 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 M2 PT-IP Current Condition Start: 08/12/19 08:32 Freq: NEEDED Status: Active Protocol: Document 08/12/19 11:31 AW (Rec: 08/12/19 11:55 AW [id number]) Physical Therapy Current Condition Current Condition Evaluation Date 08/12/19 Treatment Diagnosis oculomotor disturbance, acute confusion/disorientation; impaired mobility Onset Date 08/09/19 Precautions Other Precautions Seizure precautions in place as diff dx includes seizure, GBS, myasthenia gravis, hemiplegic migraine. M3 PT-IP Subjective Start: 08/12/19 08:32 Freq: NEEDED Status: Active Protocol: Document 08/12/19 11:31 AW (Rec: 08/12/19 11:55 AW [id number]) Subjective Physical Therapy Visit Type Type Initial Evaluation Visit Start Time 11:05 Visit Stop Time 11:25 Total Visit Minutes 20 Physical Therapy Visit Comments Patient Comments Pt is feeling much more alert but continues to experience involuntary leftward movement of both eyes. Therapy Pain Assessment Pain When Pain Assessed During Mobility Pain Present Pain Present Denied Pain M4 PT-IP Mobility and Gait Start: 08/12/19 08:32 Freq: NEEDED Status: Active Protocol: Document 08/12/19 11:31 AW (Rec: 08/12/19 11:55 AW [id number]) PT-Transfer Assessment Sit to and From Stand Sit to and from Stand Independent,Use of Upper Extremities Equipment Transfer Assistive Device Gait Belt Orthotic/Prosthetic Devices or Brace: Yes Transfers Transfer Destination Chair Transfer Technique pt ambulated without AD Transfer Ability Level of Assist Independent Comments Mobility Comments Pt had hip surgery as a child due to dislocation and has shortened RLE. She stood from the chair without assistive device and was steady with no report of dizziness. Gait Assessment Gait Gait Assistance Required: Independent Distance (Feet) 220 Assistive Devices Assistive Device Gait Belt Orthotic/Prosthetic Devices or Brace: Yes Gait Deviations General Gait Pattern Lateral Trunk Lean Factors Limiting Gait Function Factors Limiting Gait Function Decreased Strength,Limited Range of Motion,Poor Balance Comments Gait Comments Pt ambulated in the halls independent. Gait was significant for lateral trunk lean due to short R LE which was mildly corrected with pt's own orthoses. She completed modified 4-item DGI with score of 12/12 indicating low likelihood of vestibular involvement and low risk of falls. Stair Climbing Assessment Comments Stair Climbing Comments Not assessed. PT-Balance Assessment Sitting Balance and Reactions Static Sitting Balance Ability Normal Dynamic Sitting Balance Ability Normal Standing Balance and Reactions Static Standing Balance Ability Good Dynamic Standing Balance Ability Good M5 PT-IP Objective Assessments Start: 08/12/19 08:32 Freq: NEEDED Status: Active Protocol: Document 08/12/19 11:31 AW (Rec: 08/12/19 11:55 AW [id number]) Orientation Orientation/Cognition Level of Alertness Alert Orientation Name,Day of Week,Place, Situation Language Function Ability No Deficits Noted Safety Awareness Understands Safety Issues Memory Description No Deficits Noted Gross Range of Motion Lower Extremity ROM Assessment Within Functional Limits Strength Upper Extremity Strength Assessment Within Functional Limits Lower Extremity Strength Assessment Bilaterally Impaired Hip 3+/5 Knee 4/5 Ankle 4+/5 Comments Strength Comments Strength was symmetrical except for R hip with limited ROM due to prior injury. Coordination Assessment Gross Coordination Gross Coordination WNL Assessment Finger to Nose Test Normal Performance Pronation/Supination Test Normal Performance Heel on Rachel Test Normal Performance Sensation Assessment Sensation Gross Sensation WNL Muscle Tone Muscle Tone WNL Yes Comments Muscle Tone Comments Negative clonus at bilateral ankles Other Assessments Other Other Assessments Occulomotor assessment: Smooth pursuits - mildly abnormal with some evidence of poor tracking Saccades - normal Divergence/convergence- normal Resting and gaze-evoked nystagmus - none observed Head thrust - normal M6 PT-IP Treatment Start: 08/12/19 08:32 Freq: NEEDED Status: Active Protocol: Document 08/12/19 11:31 AW (Rec: 08/12/19 11:55 AW [id number]) Physical Therapy Treatment Education Education Provided Precautions,Safety Other Treatments Other Treatment Performed Provided education on role of PT, plan of care, role of vision in balance systems integration. M7 PT-IP Assessment and Plan Start: 08/12/19 08:32 Freq: NEEDED Status: Active Protocol: Document 08/12/19 11:31 AW (Rec: 08/12/19 11:55 AW [id number]) PT Summary Assessment and Plan Potential Rehabilitation Potential Good Status of Condition at Evaluation Stable Summary Impairments ROM,Strength,Gait Assessment Summary Zo is a 49yo woman seen for PT evaluation after being admitted with acute confusion, disorientation, headache, and occulomotor disturbance over the past three days. At baseline, pt is independent with all functional mobility. 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 On evaluation, she was independent to A for all mobility and scored 12/12 on modified 4-item DGI. Vestibular exam was unremarkable. Occulomotor exam demonstrated mild impairment with smooth pursuits. During evaluation, pt experienced 3 instances of involuntary leftward gaze bilaterally which lasted ~5-10 seconds each. One occurred during gait assessment and pt appropriately stopped walking and waited for involuntary eye movement to subside. No needs for acute PT identified at this time. Follow up with neurology as an outpatient to determine needs for outpatient PT. Goals Bed Mobility Goal Independent Transfer Goal Independent Gait Goal Independent Gait Distance 300 Frequency of Treatment Frequency Of Treatment Once a Day Treatment Plan Physical Therapy Treatment Plan Gait Training,Balance Retraining,Discharge Planning, Neuromuscular Re-ed, Coordination Retraining Recommendations To Nursing Amount of Assist Needed Independent Discharge Recommendations PT Discharge Recommendations Home with Assistance Other Discharge Recommendations possible OP PT depending on neurology recommendations Transportation Needs at Discharge Private Vehicle
--- NOTE | 2019-08-12 12:05 | CM.DANOTE ---
DCP assessment: EMR reviewed: Patient is a 49 yr old female who was admitted under OBS for Lt sided weakness. PCP is Dr. Bradford. CM/ RN met with patient at the bedside and explained role. Carolyn was alert and oriented x3 at time of CM/Rn Visit. Patient currently lives in a single level home with her Marquis. PT and OT evaluations stated patient is ok to go home with assistance. Patients Marquis will be home with patient during recovery. Patient is independent with all ADL's and drives at baseline. Pending MRI I: Regence and Plan: D/C home with when medically stable. No identified D/C planning need noted at this time. CM department will continue to follow to assist with any D/C planning needs that may arise. Kassy Crandall RN Discharge Planning/Care Management CM Discharge Assessment Start: 08/12/19 12:01 Freq: Status: Active Protocol: Document 08/12/19 12:01 (Rec: 08/12/19 12:04 [id number]) Discharge Planning Assessment Assigned Fish Cleaner Machine Tender Kassy Crandall Rn DPOA/Assigned Designee Name Marquis Quiñonez (spouse) Contact Information [phone] Advance Directives? Yes Advance Directives on File No History Provided By Patient,Medical Record Has Patient been admitted in last 30 No days? Prior Living Arrangements House Household Members spouse Type of transporation used prior to Drives own vehicle admit Independent with ADL's Yes Is patient alert and oriented? Yes Caregiver for Another No Discharge Plan Home Referrals Initiated None needed Whiteboard Updated in Patient Room with Yes name and ext. # of Fish Cleaner Machine Tender Review Status In Process Next Review Type Continued Stay Review
--- NOTE | 2019-08-12 12:07 | DIET.PN ---
Dietary Progress Note Assessment: Ms. Villasenor is a 49-year-old female with diagnoses of hypertension, hypothyroidism presented with a 3 day history of headaches, confusion, left-sided weakness, and visual changes. She reports recent intentional weight loss through dietary changes the last few months. HT: 165.1cm WT: 108.5kg UBW: 260lb BMI: 39.8 MNA: 10 Nicolás: 22 Nutrition Diagnosis: overweight/obesity r/t food- and nutrition-related knowledge deficit aeb reports consumption of food high in calorie/fat content. Interventions: 1. Provided pt with heart healthy nutrition therapy. 2. Discussed healthy weight loss goals. Diet Order: low sodium (2g) EER: 1700 barbara @ 30 barbara/kg IBW (for weight loss); 80 g pro Monitoring/Evaluations: weight, PO's
--- NOTE | 2019-08-12 12:36 | PM.DS.1 ---
History of Present Illness History of Present Illness Date Patient Seen: 08/11/19 Chief complaint: disoriented at times Narrative: Written by Kaya ARENAS: Zo Villasenor is a 49-year-old female with diagnoses of hypertension, hypothyroidism presented with a 3 day history of headaches, confusion, left-sided weakness, and visual changes. Her symptoms started of this past Friday which was 2 days ago with a really bad headache that lasted for 3 hours. 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 She stated that she could not figure out how to turn on her computer or operate her cellphone. 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 On Friday she took the day off and started to notice that her left eye started to twitch. Today she resumed working at home and then around noon took a nap and apparently slept until 6:00 p.m. she then woke up with pressure on the top of her head. Her came from from work and found her to be confused again and not really responding. She was had urinated on herself and had bit her lower lip. Today he stated that she started to have bilateral abnormal eye movements he refers to as looking like a type brighter moving back and forth. Stated that she was dizzy when she woke up and confused. She denies fever, shortness of breath, palpitations, she did wake up feeling nauseous. She had 1 incontinence episode but denies any diarrhea or constipation. Discharge Providers Provider Date of admission: 08/11/19 23:00 Discharge Date: 08/12/19 Primary care physician: London Bradford MD Consults: 08/11/19 23:46 Consult to Occupational Therapy Evaluate & Treat Comment: ?CVA, abnormal bilateral horizontal eye movement Physician Instructions: Evaluate and treat 08/12/19 01:05 Consult to Dietitian, Adult Routine Comment: purposefully lost weight Reason For Exam: MNA score low but patient has been dieting & 08/12/19 07:09 Consult to Physical Therapy Evaluate & Treat Comment: Physician Instructions: Evaluate and Treat Discharge provider: Minerva Bedoya DO Summary Hospital Course Discharge Diagnosis: 1. Acute left-sided weakness with an abnormal ocular movement disorder, present on admission. Improved. 2. Hypertension, chronic, present on admission. Stable. 3. Hypothyroidism, chronic, well controlled and present on admission Hospital Course: Zo Villasenor is a 49-year-old female with a past medical history significant for hypertension and hypothyroidism who presented with acute neurological symptoms. 1. Acute left-sided weakness with an abnormal ocular movement disorder, present on admission. Improved. -Patient presented with left-sided weakness, horizontal jerking left-sided nystagmus, headache, and confusion. Of note, patient reports her 1st migraine 3 weeks ago with residual headache. -Initial NIH score 0. Continued to monitor neurological status closely -CVA ruled out. Differential diagnosis is vast and includes: TIA, hemiplegic or complex migraine, Guillain-Irving, Myasthenia gravis, seizure disorder. -MR with and without contrast did not demonstrate any acute intracranial abnormalities or hemodynamically significant stenosis. Of note, left maxillary sinus mucosal thickening was noted. -Allowed for permissive hypertension for 24 hours. -Continued to monitor closely on telemetry. Patient remained in sinus rhythm without significant ectopy throughout entire hospitalization. -Patient's left-sided weakness, headache, and confusion all resolved. Patient continues to have intermittent and brief horizontal jerking nystagmus to left which is non-specific. Recommended outpatient expedited neurology evaluation. 2. Hypertension, chronic, present on admission. Stable. -Continued home felodipine 10 mg daily and losartan 100 mg daily. 3. Hypothyroidism, chronic, well controlled and present on admission -TSH was normal 2.60. -Continued home levothyroxine 50 mcg daily. Exam Vital Signs (past 8 hours): - 08/12/19 05:49 08/12/19 07:34 08/12/19 07:55 Temperature 98.5 F 98.3 F Pulse Rate 86 85 Respiratory Rate 18 17 Blood Pressure 116/80 136/80 Pulse Oximetry 95 95 97 Oxygen Delivery Method Room Air Oxygen Flow Rate 0 Narrative Exam Narrative: General: Middle-aged female sitting in bedside chair and in no acute distress, well-developed, well-nourished, appropriately interactive. HEENT: Normocephalic, atraumatic. External ears without defect. Pupils equal, round, and reactive to light. Intermittent brief left-sided horizontal jerking nystagmus. Anicteric sclerae, moist conjunctivae, and no lid lag. Oropharynx free of erythema and cobble stoning with moist mucosa. Neck: Supple with full range of motion. No lymphadenopathy or thyromegaly. Cardiovascular: Regular rate and rhythm without murmurs, rubs, or gallops appreciated. Pulmonary: Clear to auscultation bilaterally without crackles, wheezes, or rhonchi. Normal respiratory effort with no use of accessory muscles. Abdomen: Soft, bowel sounds present, nontender, nondistended. No hepatosplenomegaly or masses appreciated. Extremities: No clubbing, cyanosis, or edema. Skin: Normal temperature, turgor, and texture; no rash, ulcers, or subcutaneous nodules appreciated. Neurological: Cranial nerves grossly intact. Normal muscle strength, tone, and bulk. Reflexes, coordination, and sensory function within normal limits. No known gait impairment. Intermittent brief left-sided horizontal jerking nystagmus. Psychiatric: Normal mood and affect. Alert and oriented to person, place, and time. Objective Labs Result Diagrams: 08/12/19 05:35 08/12/19 05:35 Labs: Laboratory Results - last 24 hr 08/11/19 08/11/19 08/11/19 20:15 20:15 20:15 WBC 10.0 RBC 4.89 Hgb 14.2 Hct 43.0 MCV 88.0 MCH 29.1 MCHC 33.1 RDW 13.6 Plt Count 217 Neut % (Auto) 84.5 H Lymph % (Auto) 10.5 L Steuben % (Auto) 4.6 Eos % (Auto) 0.0 L Baso % (Auto) 0.4 Neut # (Auto) 8400 H Lymph # (Auto) 1000 L Steuben # (Auto) 500 Eos # (Auto) 0 Baso # (Auto) 0 PT 12.0 INR 1.0 APTT 27 Sodium Potassium Chloride Carbon Dioxide BUN Creatinine Estimated GFR BUN/Creatinine Ratio Glucose Calcium Magnesium Total Creatine Kinase 235 H CK-MB (CK-2) 0.66 CK-MB (CK-2) Rel Index 0.3 L Troponin I < 0.012 Triglycerides Cholesterol LDL Cholesterol, Calc HDL Cholesterol TSH U Opiates 300ng/mL cut Ur Oxycodone Screen Urine Methadone Screen Ur Barbiturates Screen U Tricyclic Antidepress Ur Phencyclidine Scrn Ur Amphetamines Screen U Methamphetamines Scrn Ur MDMA Scrn (Ecstasy) U Benzodiazepines Scrn Urine Cocaine Screen U Marijuana (THC) Screen Ethyl Alcohol < 10 08/11/19 08/11/19 08/11/19 20:15 20:15 21:22 WBC RBC Hgb Hct MCV MCH MCHC RDW Plt Count Neut % (Auto) Lymph % (Auto) Steuben % (Auto) Eos % (Auto) Baso % (Auto) Neut # (Auto) Lymph # (Auto) Steuben # (Auto) Eos # (Auto) Baso # (Auto) PT INR APTT Sodium 142 Potassium 3.9 Chloride 107 Carbon Dioxide 26 BUN 19 H Creatinine 0.79 Estimated GFR > 60.0 BUN/Creatinine Ratio 24.1 H Glucose 110 H Calcium 10.1 Magnesium Total Creatine Kinase CK-MB (CK-2) CK-MB (CK-2) Rel Index Troponin I Triglycerides Cholesterol LDL Cholesterol, Calc HDL Cholesterol TSH 2.60 U Opiates 300ng/mL cut Negative Ur Oxycodone Screen Negative Urine Methadone Screen Negative Ur Barbiturates Screen Negative U Tricyclic Antidepress Negative Ur Phencyclidine Scrn Negative Ur Amphetamines Screen Negative U Methamphetamines Scrn Negative Ur MDMA Scrn (Ecstasy) Negative U Benzodiazepines Scrn Negative Urine Cocaine Screen Negative U Marijuana (THC) Screen Negative Ethyl Alcohol 08/12/19 08/12/19 05:35 05:35 WBC 8.6 RBC 4.23 Hgb 12.5 Hct 37.4 MCV 88.5 MCH 29.5 MCHC 33.3 RDW 13.2 Plt Count 194 Neut % (Auto) 68.4 Lymph % (Auto) 23.2 L Steuben % (Auto) 7.1 Eos % (Auto) 1.0 L Baso % (Auto) 0.3 Neut # (Auto) 5900 Lymph # (Auto) 2000 Steuben # (Auto) 600 Eos # (Auto) 100 Baso # (Auto) 0 PT INR APTT Sodium 141 Potassium 3.6 Chloride 110 H Carbon Dioxide 27 BUN 18 H Creatinine 0.74 Estimated GFR > 60.0 BUN/Creatinine Ratio 24.3 H Glucose 87 Calcium 9.1 Magnesium 1.8 Total Creatine Kinase CK-MB (CK-2) CK-MB (CK-2) Rel Index Troponin I Triglycerides 95 Cholesterol 144 LDL Cholesterol, Calc 82 HDL Cholesterol 43 TSH U Opiates 300ng/mL cut Ur Oxycodone Screen Urine Methadone Screen Ur Barbiturates Screen U Tricyclic Antidepress Ur Phencyclidine Scrn Ur Amphetamines Screen U Methamphetamines Scrn Ur MDMA Scrn (Ecstasy) U Benzodiazepines Scrn Urine Cocaine Screen U Marijuana (THC) Screen Ethyl Alcohol Discharge Plan Discharge Plan Patient Disposition: Home Discharge comment: You are being discharged home. You did not have a stroke. You do not have any abnormalities of your brain on MRI to be causing your symptoms. It is unclear what is causing your gaze abnormality called horizontal nystagmus. It may be related to complex migraine versus vertigo. Recommend neurological and ophthalmological evaluation. Please follow-up with your primary care physician in the next 1 week regarding your hospitalization. Please do not drive. Discharge orders & Medications Prescriptions: Continued levothyroxine 50 mcg Tablet 50 mcg PO DAILY RF: 0 felodipine 10 mg Tablet Extended Release 24 Hr 10 mg PO DAILY RF: 0 estradiol 0.5 mg Tablet 0.5 mg PO DAILY RF: 0 losartan 100 mg Tablet 100 mg PO DAILY RF: 0 Follow up/Referrals: London Bradford MD [Primary Care Provider] - 1 Week Diet/Activity/Treatments Diet: Low-fat, Low-sodium and Low-cholesterol Activity: Activity as tolerated Visit Report/Discharge Packet Instructions: DI for Migraine, DI for Nystagmus Discharge Data Primary Care Provider: London Bradford Attending Provider: Kaya Olivia Admit Date/Time: 08/11/19 23:00 Discharges patient from system. Discharge Date/Time: 08/12/19 13:20 Quality VTE Deep Vein Thrombosis/Pulmonary Embolism Present on Admission: No
[2019-08-12] MEDS: INFLUENZA VACCINE 0.5 ML SYRINGE IM (12:51)
[2019-08-12] MEDS: LOSARTAN 50 MG TABLET 100 MG PO (12:52)
[2019-08-12 13:04] LABS: Hemoglobin A1C% w Est Avg Glu 5.4 % (4.0-6.0)
[2019-08-12 13:28] VITALS: BP 147/74; PULSE 101; RESP 16; TEMP 37; O2SAT 98
--- NOTE | 2019-08-24 15:11 | PC.NURSE ---
Late entry: NS stopped 08/11 [id number]
== END 2019-08-12 13:20 | disposition home or self-care (01) ==
LOC: ED 22:55 → AC 23:00
PROVIDERS: Internal Medicine; Admitting Provider Nurse Practitioner Family; Emergency Provider Emergency Medicine; PCP Family Medicine; Referring Provider Emergency Medicine; Visit Provider Nurse Practitioner Family
DX: R53.1 Weakness (principal); R41.0 Disorientation, unspecified; I10 Essential (primary) hypertension; E03.9 Hypothyroidism, unspecified; H55.09 Other forms of nystagmus
CPT/HCPCS: 36415; 70450; 70496; 70498; 70553; 80048; 80061; 80305; 80320; 81003; 82550; 82553; 83036; 83735; 84443; 84484; 85025; 85610; 85730; 90471; 90656; 93005; 96360; 96361; 96372; 97161; 97165; 99285; G0378; J1650; Q2038; Q9967

== ENCOUNTER 2023-03-06 08:40 | Day surgery (SDC) | payer OTHER, SELFPAY ==
[2023-02-28 09:24] VITALS: BMI 39.9
[2023-03-06] VITALS (14 sets, daily range): BP systolic 100–139; BP diastolic 41–83; PULSE 63–111; RESP 12–20; TEMP 36–36.6; O2SAT 93–97; BMI 39.9
--- NOTE | 2023-03-06 | DI.RAD.S_ITS ---
PROCEDURE: XR HIP W PEL IF DONE RT 2V INDICATIONS: Ant RT Hip TECHNIQUE: 2 intraoperative fluoroscopic views of the hip were acquired. COMPARISON: [facility], , XR HIP W PEL IF DONE RT 2V, 03/06/2023, 15:34. FINDINGS: Intraoperative fluoroscopic views of the right hip during arthroplasty. The hardware appears intact. IMPRESSION: Intraoperative fluoroscopic views of the right hip during arthroplasty. The hardware appears intact. Dictated by: Karl Adan M.D. on 03/06/2023 at 16:29 Approved by: Karl Adan M.D. on 03/06/2023 at 16:30
--- NOTE | 2023-03-06 06:00 | DI.RAD.S_ITS ---
PROCEDURE: XR HIP W PEL IF DONE RT 2V INDICATIONS: right total hip TECHNIQUE: 2 view(s) of the hip acquired. COMPARISON: [facility], [place], XR HIP W PEL IF DONE RT 2V, 03/06/2023, 13:20. FINDINGS: Bones: Patient is status post right hip arthroplasty, with hardware components in expected positions. The hip joint appears congruent. The visualized bony structures appear intact. Soft tissues: Overlying postoperative changes are noted. No suspicious soft tissue densities. IMPRESSION: Status post right total hip arthroplasty without acute hardware complication. Expected postsurgical soft tissue changes. Dictated by: Al Garvey M.D. on 03/06/2023 at 16:52 Approved by: Al Garvey M.D. on 03/06/2023 at 16:53
[2023-03-06] MEDS: LACTATED RINGERS 1,000 ML 42 ML IV (09:13)
[2023-03-06] MEDS: ACETAMINOPHEN 325 MG TABLET 975 MG PO (09:17)
[2023-03-06] MEDS: MELOXICAM 7.5 MG TABLET PO (09:18)
--- NOTE | 2023-03-06 11:22 | PM.PREOP ---
Pre-operative Note Interval Note History & Physical reviewed/Exam performed by Physician: Yes Changes to H&P: No
[2023-03-06] MEDS: CEFAZOLIN 2 GM/100 ML PREMIX 100 ML IV ×2 (12:15→20:12)
[2023-03-06] MEDS: ROPIVACAINE/EPI/CLONIDINE/KET 50 ML SYRINGE INJ (12:54)
[2023-03-06] MEDS: TRANEXAMIC ACID 1,000 MG VIAL 1000 MG INJ ×2 (12:55→15:24)
--- NOTE | 2023-03-06 13:01 | SUR.OPER ---
Supine on padded [place] table with bilateral legs secured in padded positioning boots and suspended in positioning spars, operative leg in traction per surgeon. Head on one pillow. Arm on non-operative side secured on padded armboard <90 degrees abduction. Arm on operative side padded and resting across chest then secured with tape over sheet. Padded perineal post in place per surgeon.
[2023-03-06] MEDS: SODIUM CHLORIDE IRRIG SOLUTION 250 ML, POVIDONE-IODINE SPONGE STICKS 1 APPLIC IRR (14:04)
[2023-03-06] MEDS: BUPIVACAINE 0.5% (PF) 10 ML VIAL 5 ML SUBCUT (14:06)
--- NOTE | 2023-03-06 15:40 | P.OP_ITS ---
Operative Date/Time/Diagnoses Date of procedure: 03/06/23 Time of procedure: 15:40 Pre-op diagnosis: Right hip arthritis Post-op diagnosis: same Procedure & Clinicians Procedure: Right total hip arthroplasty Same procedure as scheduled: Yes Surgeon: Henrry Odonnell Typing Teacher: Mejia Bell Anesthesia Type: General and Local Operative Notes Findings: Hip auto fusion Prosthetic devices, grafts, tissues, transplants, or devices: Depuy pinnacle size 48 pinnacle cup with 2 screws, neutral liner, and Actis size 3 high offset femoral stem with 32 mm +1.5 head with 1 prophylactic cerclage cable Estimated Blood Loss (mL): 350 Procedure in detail: This 52-year-old female patient has a history of childhood surgery on her right femur. 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 She describes it as having been fixed with 4 screws. Those were later removed. She had a laterally based scar in her proximal femur. She was seen in clinic and had end-stage hip arthritis with concordant symptoms and activity limitations. I have recommended weight loss to get her BMI down to 40 and she was able to do this. Risks and benefits of operative versus nonoperative treatment were discussed and she wished to proceed with surgery. Informed consent was obtained. She was met in the preoperative holding area the day of surgery and risks and benefits of the procedure were again discussed at length. Specific to her was the possibility of nerve injury secondary to lengthening from her shortened position from her severe posttraumatic arthritis. We also discussed the typical complications of the procedure. She was brought back to the operating room placed supine on the operating table. All bony prominences were padded. A time-out was performed verifying the correct patient, operative site, procedure to be performed, medical issues and allergies. She was prepped and draped in the usual sterile fashion. VALERIY Syed assisted with the surgery and was necessary for surgical set up, soft tissue retraction, wound closure. Without his assistance the surgery would not have been possible. TXA and Ancef were administered prior to incision. A direct anterior approach was utilized. Her tissue was noted to be rather atrophied. Retractors were placed over the inferior and superior femoral neck and a capsulotomy was performed. I was unable to preserve the capsule as it had adhered completely to the femoral head and could not be maintained as a sleeve. I mapped out the femoral neck resection fluoroscopically due to inability to feel the lesser trochanter reliably. After mapping this out I made the cut and a napkin ring cut. Once these were removed a very thin wafer of the remaining femoral head remained and this was removed as well. At this point I attempted to mobilize the femur to place retractors on the anterior and posterior wall and found that the femur was fused to the acetabulum. There was no mobility when traction was applied or when the foot was externally rotated. I resected all accessible bone between the posterior femur and the anterior acetabulum but still could not gain any mobility of the femur. I resected anterior wall osteophyte to attempt to allow the Reamer to enter the acetabulum but still was unable to do so because of the auto fusion between the femur and the acetabulum. Eventually enough bone was resected from the anterior wall to run a 43 mm Reamer into the socket. This eventually resulted in enough bone resection that I was able to ream. I reamed up to 47 mm and placed a 48 mm cup. Two screws were placed. An obturator nerve block was performed inferior to the cup. Cup position was verified fluoroscopically to ensure the correct anteversion and abduction. A large anterior osteophyte was removed. A neutral 32 mm liner was placed. I then moved to the femur. Retractors were placed and a preliminary capsular release was performed with the hip in neutral flexion. I then put the hip in extension and adduction and noted ongoing tightness. A final capsular release was performed as well as a conjoined tendon release. This allowed enough mobility to prep the femur. I initially used a music box mechanic to gain some access to the canal as it was very sclerotic secondary to all of her screw tracts. I then used a rasp to open that. The starter broach was introduced and impacted down the canal. A significant amount of sclerotic bone remained within the canal and this was removed with a combination of curettes and Rongeurs. I broached up to a size 1 and returned to rongeuring away the canal. I broached up to a size 2 and found more sclerotic bone to rongeur away. I broached up to a size 3 and found that to be stable. A standard offset neck and a +1.5 head were placed. Retractors were removed and I brought the hip back to neutral flexion. I attempted to reduce the hip and found it to be irreducible. I placed an anterior wall retractor to remove any soft tissue restrictions to reduction. It was easily able to be placed into the socket but would immediately recoil. It would dislocate anteriorly. I determined that it was impinging posteriorly. I brought the hip back down to an extended and adducted position and removed the head neck and stem. I placed a lap in the femur to limit bleeding. I returned to a neutral flexion position and found a remaining large posterior wall osteophyte. I removed this with a rongeur. There was a considerable amount of soft tissue attached to it as well. I then returned to the broaching position and replaced the retractors. Because of the considerable amount of bone which had been resected from the femur and the difficulty assessing the difference between osteophyte and normal femur, I elected to place a prophylactic cerclage cable. This was placed in the broaching position while the broach was out. I then replaced the size 3 broach and again placed the +1.5 head and the standard offset neck. On fluoroscopic imaging this appeared to have appropriate length. It was able to be stably reduced and there was no in stability as I had during my initial attempt to reduce with the same components. This indicated to me that the source of instability had been impingement between the posterior wall osteophyte in the greater trochanter. The hip was stable with maximum external rotation as well as a 45 degree drop test. Fluoroscopically additional offset was desired as there was overlap between the ischium and the proximal femur. I therefore returned to the broaching position, replaced the retractors, and placed a size 3 high offset Actis stem. I inspected below the prophylactic cerclage cable to ensure that no fractures had occurred and could not identify any. I placed a trial 1.5 mm head and reduced that after returning to neutral hip flexion. This was noted to be stable with maximum external rotation and a 45 degree drop test and to have improved offset on the fluoroscopic imaging. I therefore returned to the final broaching position, placed a 32 mm +1.5 head on a clean dry trunnion and reduced the hip. The wound was soaked with Betadine. It was irrigated. The remainder of the ropivacaine epinephrine clonidine and Toradol mixture was administered into the wound. The wound was closed using a combination of Stratafix and Monocryl. The capsule was not able to be closed as it could not be preserved during initial exposure. Dermabond was applied and a murali dressing was utilized given the patient's high BMI and the significant amount of soft tissue dissection necessary to accommodate the resection of all of her osteophytes. She was awoken from anesthesia without complication and brought to the PACU where she was noted to have intact flexion and extension of her hallux and ankle and to have well-perfused feet. Post-operative Plan for aftercare: Weightbearing as tolerated with anterior hip precautions Aspirin 81 mg twice per day DVT prophylaxis Plan for discharge home Follow-up in our clinic in 2 weeks
[2023-03-06] MEDS: OXYCODONE IR 5 MG TABLET PO (15:56)
[2023-03-06] MEDS: LACTATED RINGERS 1,000 ML 100 ML IV ×2 (15:58→17:24)
--- NOTE | 2023-03-06 16:51 | PC.NURSE ---
Patient arrived this afternoon from PACU to room 225. She is A&OX4,on RA. HR slightly elevated low 100's she reports pain to R hip moderate. TERESA dressing to R hip with green light flashing. She denies altered sensation. +CMS to BLE'S. PT at bedside evaluating patient. IVF LR running at 100ml/hr. SCD's placed, call light in reach, bed alarm on. Post op VS per protocol. Continuous monitoring.
--- NOTE | 2023-03-06 17:07 | PT.IIE ---
Current Diagnoses Unilateral primary osteoarthritis, right hip (03/06/23) Surgery Performed Operation Date: 03/06/23 10:15 Actual Procedures p Total Hip Arthroplasty/Anterior Approach, injection Left knee(Right) - Henrry Odonnell MD Surgical History (Last Updated 02/28/23 @ 10:12 by Heaven Drake RN) H/O: hysterectomy (2005) History of section History of hip surgery Hx of cholecystectomy (1995) Hx of tubal ligation (1984) Medical History (Last Updated 02/28/23 @ 10:12 by Heaven Drake RN) History of COVID-19 (11/2021) Hypertension Hypothyroid Left knee pain Migraines Osteoarthritis Physical Therapy Inpatient Evaluation/Re-Eval M1 PT/OT-IP Prior Functional Status Start: 03/06/23 17:07 Freq: NEEDED Status: Active Protocol: Document 03/06/23 17:07 AB (Rec: 03/06/23 17:32 AB [id number]) Medical Review Prior Functional Status Medical History Reviewed Yes Communication Pt is able to express all needs. Mobility and Gait Pt ambulated Tonie with 4WW due to right hip pain and weakness for the couple of weeks. Activities of Daily Living and IADL's IND with all ADLs and IADLs, though sometimes had to modify due to pain. Prior Functional Level (Other details) Works from home but is taking some time off to recover. Social History Household Members spouse Living Arrangements House Number of Floors (Floors) One Floor Number of Stairs To Enter/Railing? 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 M2 PT-IP Current Condition Start: 03/06/23 17:07 Freq: NEEDED Status: Active Protocol: Document 03/06/23 17:07 AB (Rec: 03/06/23 17:32 AB [id number]) Physical Therapy Current Condition Current Condition Evaluation Date 10/12/23 Treatment Diagnosis s/p right anterior NICHELLE Onset Date 03/06/23 M3 PT-IP Subjective Start: 03/06/23 17:07 Freq: NEEDED Status: Active Protocol: Document 03/06/23 17:07 AB (Rec: 03/06/23 17:32 AB [id number]) Subjective Physical Therapy Visit Type Type Initial Evaluation Visit Start Time 16:40 Visit Stop Time 17:07 Total Visit Minutes 27 Physical Therapy Visit Comments Patient Comments Pt presents semi supine with RN providing care and spouse at bedside. She is agreeable to PT evaluation this afternoon. Therapy Pain Assessment Pain When Pain Assessed At Rest Pain Present Pain Present Pain Reported Location Right Hip Intensity 5 Scale Used Numeric (0 - 10) Pain Management Techniques Apply Cold,Modification of Treatment,Re-positioning M4 PT-IP Mobility and Gait Start: 03/06/23 17:07 Freq: NEEDED Status: Active Protocol: Document 03/06/23 17:07 AB (Rec: 03/06/23 17:32 AB [id number]) PT-Bed Mobility Assessment Rolling Type of Rolling Bilateral Level of Assist Standby Assistance Supine to Sit Supine to Sit Contact Guard Assistance Sit to Supine Sit to Supine Minimal Assistance,1 Person Assistance Scooting Scooting to Edge of Bed Standby Assistance Scooting Up and Down in Bed Standby Assistance PT-Transfer Assessment Sit to and From Stand Sit to and from Stand Minimal Assistance,Moderate Assistance,1 Person Assistance ,Use of Upper Extremities Equipment Transfer Assistive Device Gait Belt,Front Wheeled Walker Transfers Transfer Destination Bed,Toilet Transfer Technique Stand Step Pivot Transfer Ability Level of Assist Minimal Assistance,Moderate Assistance,Use of Upper Extremities Comments Mobility Comments Pt's BP in supine is 117/73 mmHg. She is able to perform bed mobility to get to EOB with SBA/CGA. Once sitting at EOB, pt denies lightheadedness or dizziness but BP dropped to 102/61 and improved to 122/ 71 after a couple of minutes of rest. The pt then performed STS with min-modA x1 and FWW, and required cues for proper hand and foot placement, as she attempts to rotate towards left side as she stands. Pt's BP is 112/71 in standing with minimal lightheadedness. The pt then ambulated to bathroom. She required min-modA and heavy use of grab bars to sit on toilet. Pt was able to void , and performed pericare while seated. Pt then required Seun to perform STS with use of grab bars. Pt ambulated back to bed and was able to sit with minimal cueing needed. She required Seun to assist with RLE for sit<>supine due to weakness, and was educated on how to use gait belt to assist RLE. At end of session, pt is in bed with all needs met, call light within reach, bed alarm set, and spouse at bedside. RN was notified of findings. Gait Assessment Gait Gait Assistance Required: Contact Guard Assist Distance (Feet) 10 Assistive Devices Assistive Device Gait Belt,Front Wheeled Walker Gait Deviations General Gait Pattern Decreased Stride Length, Decreased Feet Clearance Factors Limiting Gait Function Factors Limiting Gait Function Decreased Activity Tolerance, Decreased Sensation,Decreased Strength,Limited Range of Motion,Pain Comments Gait Comments The pt was able to ambulate from bed to bathroom and back (~10ft x2) with FWW and CGA. She required verbal cues for proper use of FWW and to avoid hyperextending hip while ambulating or pivoting while turning. No instability or LOB is noted today, but pt ambulates slowly and cautiously. Gait deviations are consistent with surgical procedure. Stair Climbing Assessment Comments Stair Climbing Comments Not assessed due to weakness and fatigue. PT-Balance Assessment Sitting Balance and Reactions Static Sitting Balance Ability Normal Dynamic Sitting Balance Ability Good Standing Balance and Reactions Static Standing Balance Ability Good Dynamic Standing Balance Ability Fair Device Used FWW M5 PT-IP Objective Assessments Start: 03/06/23 17:07 Freq: NEEDED Status: Active Protocol: Document 03/06/23 17:07 AB (Rec: 03/06/23 17:32 AB [id number]) Orientation Orientation/Cognition Level of Alertness Alert Orientation Name,Age,Birthday,Month,Date, Year,Day of Week,Place, Situation Language Function Ability No Deficits Noted Safety Awareness Understands Safety Issues Memory Description No Deficits Noted Gross Range of Motion Upper Extremity ROM Assessment Within Functional Limits Lower Extremity ROM Assessment Right Impaired Strength Upper Extremity Strength Assessment Within Functional Limits Lower Extremity Strength Assessment Right Impaired Sensation Assessment Sensation Gross Sensation Right LE Impaired Sensation Description Numbness M6 PT-IP Treatment Start: 03/06/23 17:07 Freq: NEEDED Status: Active Protocol: Document 03/06/23 17:07 AB (Rec: 03/06/23 17:32 AB [id number]) Physical Therapy Treatment Education Education Provided Precautions,Weight Bearing Status,Post-Op Packet,Safety Brace Education Patient,Caregiver M7 PT-IP Assessment and Plan Start: 03/06/23 17:07 Freq: NEEDED Status: Active Protocol: Document 03/06/23 17:07 AB (Rec: 03/06/23 17:32 AB [id number]) PT Summary Assessment and Plan Potential Rehabilitation Potential Good Status of Condition at Evaluation Stable Summary Impairments Pain,ROM,Strength,Balance,Bed Mobility,Transfers,Gait, Activity Tolerance Assessment Summary Zo Villasenor is a 52 year old female patient who is s/p right anterior NICHELLE performed on 03/06/23. The pt currently demonstrates impairments consistent with this surgical procedure including weakness, ROM deficits, gait deviations and pain symptoms. These are limiting her ability to perform functional mobility independently. She currently requires SBA to Seun for bed mobility, min-modA for STS and transfers with FWW, and CGA for ambulation. The pt was able to ambulate 10ft x2 with FWW and CGA. Based on her current level of function, PT expects pt to be able to discharge safely to home with assistance and outpatient PT. However, this may change based on her progress. The pt would benefit from continued skilled PT over the course of her hospitalization to improve to her highest level of function. Goals Bed Mobility Goal Independent Transfer Goal Independent,Front Wheeled Walker Gait Goal Independent,Front Wheel Walker Gait Distance 50 Other Goals Pt to be able to ascend/ descend 2 steps with SBA and bilateral hand rails to demonstrate she is safe to discharge to home. Days to Meet Goals 5 Frequency of Treatment Frequency Of Treatment Twice a Day Treatment Plan Physical Therapy Treatment Plan Bed Mobility Training,Transfer Training,Gait Training, Therapeutic Exercise,Balance Retraining,Post Op Education, Discharge Planning,Hot or Cold Pack,Neuromuscular Re-ed, Coordination Retraining,Manual Therapy Other Recommendations and Next Treatment Attempt longer gait distance Focus as well as stairs. Precautions Anterior Hip Precautions No Hip Extension,No Hip External Rotation Weight Bearing Status Weight Bearing Status Weight Bear as Tolerated Recommendations To Nursing Amount of Assist Needed 1 Person Assist Discharge Recommendations PT Discharge Recommendations Home with Assistance, Outpatient PT Transportation Needs at Discharge Private Vehicle
[2023-03-06] MEDS: ACETAMINOPHEN 325 MG TABLET 650 MG PO (17:23)
[2023-03-06] MEDS: IBUPROFEN 600 MG TABLET PO (17:23)
[2023-03-06] MEDS: DOCUSATE 100 MG CAPSULE PO (20:12)
[2023-03-06] MEDS: ASPIRIN EC 81 MG TABLET PO (20:12)
[2023-03-06] MEDS: OXYCODONE IR 10 MG TABLET PO (20:12)
[2023-03-07 00:56] VITALS: BP 115/73; PULSE 87; RESP 18; TEMP 35.9; O2SAT 98
[2023-03-07] MEDS: OXYCODONE IR 10 MG TABLET PO ×3 (02:36→12:36)
[2023-03-07] MEDS: CEFAZOLIN 2 GM/100 ML PREMIX 100 ML IV (04:33)
[2023-03-07] MEDS: IBUPROFEN 600 MG TABLET PO ×2 (04:33→11:45)
[2023-03-07] MEDS: ACETAMINOPHEN 325 MG TABLET 650 MG PO ×2 (04:33→11:44)
[2023-03-07 05:15] LABS: Hematocrit 31.4 % (36-46); Hemoglobin 10.5 g/dL (12.0-16.0)
--- NOTE | 2023-03-07 07:49 | PM.PNPO.1 ---
Subjective Subjective Date Patient Seen: 03/07/23 Time Patient Seen: 07:49 Interval history: Patient's pain is moderate. No fever or chills. No nausea or vomiting. Patient has been up a couple times to use the bathroom. Patient does have assistance at home. Exam Vital Signs (past 8 hours): - 03/07/23 00:56 Temperature 96.7 F L Pulse Rate 87 Respiratory Rate 18 Blood Pressure 115/73 Pulse Oximetry 98 Oxygen Flow Rate 0 Oxygen Delivery Method Nasal Cannula Oxygen Flow Rate 0 Narrative Exam Narrative: 52-year-old female resting comfortably in bed in no apparent distress. [place] dressing is on and functioning. Small nickel sized area of spotting. Motor functions intact with ability to wiggle all toes and able to dorsiflex and plantar flex right ankle. Sensation grossly intact to light touch. Const General: cooperative Nutritional Appearance: average body habitus and obese (BMI 39.9) Orientation: alert Resp Effort & Inspection: normal respiratory effort and able to speak in complete sentences Objective Labs 03/07/23 04:25 Labs: Laboratory Results - last 24 hr 03/07/23 04:25 Hgb 10.5 L Hct 31.4 L PFSH Medical History (Updated 02/28/23 @ 10:12 by Heaven Drake RN) Left knee pain Osteoarthritis Migraines History of COVID-19 (11/2021) Hypothyroid Hypertension Surgical History (Updated 02/28/23 @ 10:12 by Heaven Drake RN) H/O: hysterectomy (2005) Hx of cholecystectomy (1995) Hx of tubal ligation (1984) History of section History of hip surgery Family History (Updated 08/12/19 @ 00:16 by DAGOBERTO Escalona) Mother Hypertension Diabetes type 2, controlled Father Hypertension Diabetes mellitus Insulin dependent diabetes mellitus Social History household members: spouse Smoking Status: Never smoker alcohol intake: current Assessment & Plan Post-op Postoperative Procedures: Procedures Operation Date: 03/06/23 10:15 Actual Procedure Side Surgeon p Total Hip Arthroplasty/Anterior Approach, injection Left knee Right Henrry Odonnell MD Postoperative day: 1 Postoperative status: doing well Postoperative status narrative: Patient doing well status post right total hip arthroplasty Postoperative plan narrative: Weightbearing as tolerated, anterior hip precautions Multimodal pain management Aspirin 81 mg b.i.d. for DVT prophylaxis Patient will mobilize with physical therapy and likely discharge home later today. Quality VTE Deep Vein Thrombosis/Pulmonary Embolism Present on Admission: No
[2023-03-07] MEDS: DOCUSATE 100 MG CAPSULE PO (08:19)
[2023-03-07] MEDS: ASPIRIN EC 81 MG TABLET PO (08:20)
[2023-03-07 08:23] VITALS: BP 123/82; PULSE 81; RESP 16; TEMP 36.4; O2SAT 99
--- NOTE | 2023-03-07 09:10 | OT.IP.EVAL ---
Current Diagnoses Unilateral primary osteoarthritis, right hip (03/06/23) Surgery Performed Operation Date: 03/06/23 10:15 Actual Procedures p Total Hip Arthroplasty/Anterior Approach, injection Left knee(Right) - Henrry Odonnell MD Past Medical History (Last Updated 02/28/23 @ 10:12 by Heaven Drake, RN) History of COVID-19 (11/2021) Hypertension Hypothyroid Left knee pain Migraines Osteoarthritis Surgical History (Last Updated 02/28/23 @ 10:12 by Heaven Drake RN) H/O: hysterectomy (2005) History of section History of hip surgery Hx of cholecystectomy (1995) Hx of tubal ligation (1984) Occupational Therapy Inpatient Evaluation/Re-Eval M1 PT/OT-IP Prior Functional Status Start: 03/07/23 09:14 Freq: NEEDED Status: Active Protocol: Document 03/07/23 09:14 [facility] (Rec: 03/07/23 09:29 [facility] [id number]) Medical Review Prior Functional Status Medical History Reviewed Yes Communication Pt is able to express all needs. Mobility and Gait Pt ambulated Tonie with 4WW due to right hip pain and weakness for the couple of weeks. Activities of Daily Living and IADL's IND with all ADLs and IADLs, though sometimes had to modify due to pain. Prior Functional Level (Other details) Works from home but is taking some time off to recover. Social History Household Members spouse Living Arrangements House Number of Floors (Floors) One Floor Number of Stairs To Enter/Railing? 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 M2 OT-IP Current Condition Start: 03/07/23 09:14 Freq: Status: Active Protocol: Document 03/07/23 09:14 [facility] (Rec: 03/07/23 09:29 [facility] [id number]) Occupational Therapy Current Condition Current Condition Evaluation Date 03/07/23 Treatment Diagnosis S/P R NICHELLE Anterior approach Diagnosis Onset Date 03/06/23 Post Operative Precautions Anterior Hip Precautions No Hip Extension,No Hip External Rotation M3 OT- IP Subjective and Pain Start: 03/07/23 09:14 Freq: Status: Active Protocol: Document 03/07/23 09:14 [facility] (Rec: 03/07/23 09:29 [facility] [id number]) OT- Subjective Occupational Therapy Visit Type Type Initial Evaluation Visit Start Time 08:55 Visit Stop Time 09:13 Total Visit Minutes 18 Occupational Therapy Visit Comments Patient Comments Pt just using the bathroom when OT came in to see the pt. Pt's in the room. Patient/Caregiver Goals To go home. OT Pain Assessment Pain When Pain Assessed At Rest Pain Present Pain Present Pain Reported Location Right Hip Intensity 3 Scale Used Numeric (0 - 10) M4 OT- IP ADL's Start: 03/07/23 09:14 Freq: Status: Active Protocol: Document 03/07/23 09:14 [facility] (Rec: 03/07/23 09:29 [facility] [id number]) OT [id number] General Evaluation Self-Feeding Ability Independent OT ADL-Grooming General Evaluation Grooming Ability Independent OT ADL-Oral Care General Eval Oral Care Ability Independent OT ADL-Dressing General Eval Upper Body Dressing Ability Independent Lower Body Dressing Ability Maximum Assistance Comments OT Dressing Comments Educated pt on use of cartridge assembling machine adjuster and sock aid to assist for LB dressing needs. Best to dress her RLE first and take out past. At this time pt just wanting her to assist with dressing needs. OT ADL-Toileting General Evaluation Toileting Ability Moderate Assistance Areas Needing Assistance Manage Clothing,Perform Perineal Hygiene Comments OT Toileting Comments Assist for clothing management and completeness to wipe. OT ADL-Bathing Comments OT Bathing Comments Pt states to shower at home. M5 OT- IP IADL's Start: 03/07/23 09:14 Freq: Status: Active Protocol: Document 03/07/23 09:14 [facility] (Rec: 03/07/23 09:29 [facility] [id number]) OT-Instrumental Activities of Daily Living Deficits IADL Deficits Identified Deficits Home Safety Awareness Awareness of Need for Assistance at Home Good Awareness Ability to Problem Solve Emergency Able to Problem Solve Situations Meal Preparation Meal Preparation Comments Pt's to assist at this time. Epic Director Epic Director Comments Pt's to assist at this time. M6 OT- IP Functional Cognition Start: 03/07/23 09:14 Freq: Status: Active Protocol: Document 03/07/23:14 [facility] (Rec: 03/07/23 09:29 [facility] [id number]) Cognitive Factors Limiting Selfcare Function Cognitive Ability Level of Alertness Alert Patient Orientation Name,Age,Birthday,Month,Date, Year,Day of Week,Place, Situation Attention Span Ability Capable of Focused Attention, Capable of Sustained Attention Safety Awareness Decreased Ability to Apply Precautions Cognitive Comments Cognitive Assessment Comments Pt needing reminders to incorporate her hip precautions especially during mobility needs. OT- Vision and Hearing OT- Hearing Assessment OT- Hearing Assessment WFL OT- Vision Assessment Visual Acuity Contact Lenses M7 OT- IP Mobility and Balance Start: 03/07/23:14 Freq: Status: Active Protocol: Document 03/07/23:14 [facility] (Rec: 03/07/23 09:29 [facility] [id number]) OT-Transfer Assessment Sit to and From Stand Sit to and from Stand Moderate Assistance Transfers Transfer Ability Minimal Assistance Technique Transfer Destination Bed,Toilet Transfer Technique Stand Step Pivot Devices Transfer Assistive Devices Gait Belt,Front Wheeled Walker Comments Mobility Comments Pt needing MODA to stand form lower surfaces and heavily relies on her BUE to assist to stand due to her right hip pain and bad left knee per pt. Pt at times needing to grab the FWW to stand and educating her is hold it in place. Pt able to assist pt from use of the gait belt to come to stand as well. Pt states all her surfaces at home are very high up and easier to get up from . Once up on her feet pt is CGA with FWW and reminders to follow her hip precautions. OT- Balance Assessment Sitting Balance and Reactions Static Sitting Balance Ability Good Dynamic Sitting Balance Ability Fair Standing Balance and Reactions Static Standing Balance Ability Fair Dynamic Standing Balance Ability Fair M9 OT- IP Assessment and Plan Start: 03/07/23:14 Freq: Status: Active Protocol: Document 03/07/23:14 [facility] (Rec: 03/07/23 09:29 [facility] [id number]) OT Summary Assessment and Plan Potential Rehabilitation Potential Good Analytic Complexity at Evaluation Low Summary OT Impairments Pain,Strength,Balance, Functional Mobility,Dressing, Toileting,Bathing,Toilet Transfers,Shower Transfers Progress Towards Goals Progressing Toward Goals Assessment Summary Pt low complexity and main barriers are pain, has difficulty with transitions from sit to stand, and needing reminders to for her hip precautions during mobility needs. Pt has a very supportive to be able to assist her at home. Pt to go home when medically stable and have outpt PT. Goals Dressing Goal Minimal Assistance Toileting Goal Minimal Assistance Bathing Goal Minimal Assistance Toilet Transfer Goal Independent Shower Transfer Goal Independent Days to Meet Goals 7 Frequency of Treatment Frequency Of Treatment Once a Day Treatment Plan OT Treatment Plan ADL Training,Functional Mobility,Patient/Family Education,Discharge Planning Discharge Recommendations OT Discharge Recommendations Home with Assistance, Outpatient PT Transportation Needs at Discharge Private Vehicle
--- NOTE | 2023-03-07 10:50 | PT.IPTN ---
Current Diagnoses Unilateral primary osteoarthritis, right hip (03/06/23) Surgery Performed Operation Date: 03/06/23 10:15 Actual Procedures p Total Hip Arthroplasty/Anterior Approach, injection Left knee(Right) - Henrry Odonnell MD Physical Therapy Treatment Note M2 PT-IP Current Condition Start: 03/06/23 17:07 Freq: NEEDED Status: Active Protocol: Document 03/06/23 17:07 AB (Rec: 03/06/23 17:32 AB [id number]) Physical Therapy Current Condition Current Condition Evaluation Date 03/06/23 Treatment Diagnosis s/p right anterior NICHELLE Onset Date 03/06/23 M3 PT-IP Subjective Start: 03/06/23 17:07 Freq: NEEDED Status: Active Protocol: Document 03/07/23 10:50 AB(2) (Rec: 03/07/23 12:46 AB(2) [id number]) Subjective Physical Therapy Visit Type Type Treatment Note Visit Start Time 10:50 Visit Stop Time 11:32 Total Visit Minutes 42 Number of SHUTTLE BUGGY OPERATOR Visits 0 Therapy Pain Assessment Pain When Pain Assessed At Rest Pain Present Pain Present Pain Reported Location Right Hip Intensity 3 Scale Used increases with mobility Pain Management Techniques Distraction,Modification of Treatment,Re-positioning, Timing of Activity with Medications M4 PT-IP Mobility and Gait Start: 03/06/23 17:07 Freq: NEEDED Status: Active Protocol: Document 03/07/23 10:50 AB(2) (Rec: 03/07/23 12:46 AB(2) [id number]) PT-Bed Mobility Assessment Supine to Sit Supine to Sit Minimal Assistance,1 Person Assistance PT-Transfer Assessment Sit to and From Stand Sit to and from Stand Minimal Assistance,1 Person Assistance,Use of Upper Extremities Equipment Transfer Assistive Device Gait Belt,Front Wheeled Walker Orthotic/Prosthetic Devices or Brace: No Transfers Transfer Destination Bed Transfer Technique ambulated Transfer Ability Level of Assist Standby Assistance,Contact Guard Assistance,1 Person Assistance,Use of Upper Extremities Comments Mobility Comments pt supine in bed. spouse in room. reviewed hip precautions with pt and spouse. pt recalled 1/2. pt completed supine to sit min A with spouse assisting with LE movement. pt able to sit on EOB SBA. spouse stated that OT did not caregiver training. instructed spouse to put saftey belt on pt but unable. caregiver training conducted. educated spouse on use of saftey belt and how to assist and instruct pt if needed. spouse was able to put safety belt on pt. spouse asssisted pt with sit to stand but provided heavy lift on pt and pt tends to rotate trunk towards L side. instructed pt to sit back on the bed. educated pt on sit<>stand techniques and informed spouse to assist pt only as needed. pt completed sit to stand with PT assisting min A. Spouse counter demonstrated and able to assist pt safely. pt ambulated in room ~ 20 ft using FWW SBA to CGA. cued for steadiness and quads activation. pt sat on EOB. pt stated that she stairs to get into the house. confirmed with pt regarding stairs (per eval, pt has a ramp to enter), pt stated that they have 2 steps with B rails to enter. stated that they can put a ramp but pt prefers to do the stairs. pt sit to stand from EOB min A with spouse assisting and also assisted pt with ambulation using FWW ~ 100 ft. stair climbing training. educated pt and spouse on stairclimbing. pt completed ascending the stair using B rail mod A and max cues. pt tends to circumduct LLE to get it up the step. max A x 1- 2 for descending stairs with ( +) R knee buckling. (+) L knee crepitus. pt stated that she has L knee arthritis but got a steroid shot yesterday. educated pt and spouse regarding safety and use of ramp at this time. pt and spouse understood. Gait Assessment Gait Gait Assistance Required: Standby Assistance,Contact Guard Assist Distance (Feet) 100 Able to Maintain Weight Bearing Status Yes During Gait Assistive Devices Assistive Device Gait Belt,Front Wheeled Walker Orthotic/Prosthetic Devices or Brace: No Gait Deviations General Gait Pattern Antalgic,Decreased Stride Length,Decreased Feet Clearance Factors Limiting Gait Function Factors Limiting Gait Function Decreased Activity Tolerance, Decreased Strength,Limited Range of Motion,Pain,Poor Balance,Poor Safety Awareness Stair Climbing Assessment Evaluation Level of Assist On Stairs Moderate Assistance,Maximal Assistance,1 Person Assistance ,2 Person Assistance Devices Stair Climbing Assistive Devices Left Railing,Right Railing Technique/Endurance Stair Climbing Direction Ascend and Descend Stair Climbing Technique Step to Step Number of Steps Climbed 3 Stair Climbing Set # Repetitions (reps) 1 M5 PT-IP Objective Assessments Start: 03/06/23 17:07 Freq: NEEDED Status: Active Protocol: Document 03/06/23 17:07 AB (Rec: 03/06/23 17:32 AB [id number]) Orientation Orientation/Cognition Level of Alertness Alert Orientation Name,Age,Birthday,Month,Date, Year,Day of Week,Place, Situation Language Function Ability No Deficits Noted Safety Awareness Understands Safety Issues Memory Description No Deficits Noted Gross Range of Motion Upper Extremity ROM Assessment Within Functional Limits Lower Extremity ROM Assessment Right Impaired Strength Upper Extremity Strength Assessment Within Functional Limits Lower Extremity Strength Assessment Right Impaired Sensation Assessment Sensation Gross Sensation Right LE Impaired Sensation Description Numbness M6 PT-IP Treatment Start: 03/06/23 17:07 Freq: NEEDED Status: Active Protocol: Document 03/07/23 10:50 AB(2) (Rec: 03/07/23 12:46 AB(2) [id number]) Physical Therapy Treatment Education Education Provided Precautions,Safety M7 PT-IP Assessment and Plan Start: 03/06/23 17:07 Freq: NEEDED Status: Active Protocol: Document 03/07/23 10:50 AB(2) (Rec: 03/07/23 12:46 AB(2) [id number]) PT Summary Assessment and Plan Potential Rehabilitation Potential Fair Summary Impairments Pain,ROM,Strength,Balance, Coordination,Sensation,Tone, Cognition,Bed Mobility, Transfers,Gait,Activity Tolerance Progress Towards Goals Slow Progress due to Medical Issues,Slow Progress due to Activity Tolerance,Slow Progress - Other Assessment Summary Caregiver training conducted and spouse was able to assist pt with bed mobility, transfers and ambulation. pt requiring mod A for ascending stairs using B rails and spouse was able to assist but needing max A x 1-2 for descending stairs with (+) R knee buckling. recommending use of ramp at this time. pt may to home with spouse to assist. Goals Bed Mobility Goal Independent Transfer Goal Independent,Front Wheeled Walker Gait Goal Independent,Front Wheel Walker Gait Distance 150 Other Goals Pt to be able to ascend/ descend 2 steps with SBA and bilateral hand rails to demonstrate she is safe to dsicharge to home. Days to Meet Goals 5 Frequency of Treatment Frequency Of Treatment Twice a Day Treatment Plan Physical Therapy Treatment Plan Bed Mobility Training,Transfer Training,Gait Training, Therapeutic Exercise,Balance Retraining,Post Op Education, Discharge Planning,Hot or Cold Pack,Neuromuscular Re-ed, Coordination Retraining,Manual Therapy Precautions Anterior Hip Precautions No Hip Extension,No Hip External Rotation Weight Bearing Status Weight Bearing Status Weight Bear as Tolerated Allowed Weight Bearing Amount (enter % RLE WBAT or #) (%) Recommendations To Nursing Amount of Assist Needed 1 Person Assist Discharge Recommendations PT Discharge Recommendations Home with Assistance, Outpatient PT Transportation Needs at Discharge Private Vehicle
--- NOTE | 2023-03-07 12:05 | PM.DS.1 ---
History of Present Illness History of Present Illness Date Patient Seen: 03/07/23 Time Patient Seen: 12:06 Chief complaint: Hip pain Narrative: See progress note Discharge Providers Provider Discharge Date: 03/07/23 Primary care physician: Priya Franks PA-C Consults: 03/06/23 06:00 Consult to Anesthesiology Routine Comment: Consulting Provider: Anesthesiologist Reason for consultation: Regional block for post operative pain control 03/06/23 16:14 Consult to Discharge Planning Routine Comment: Consult to Occupational Therapy Evaluate & Treat Comment: Physician Instructions: Evaluate and treat Consult to Physical Therapy Evaluate & Treat Comment: Physician Instructions: post op NICHELLE protocol Discharge provider: Mejia Bell PA-C Summary Hospital Course Discharge Diagnosis: Right hip arthritis Obesity BMI 39.9 Hospital Course: Right total hip arthroplasty Same procedure as scheduled: Yes Surgeon: Henrry Odonnell Box Maker Paperboard: Mejia Bell Anesthesia Type: General and Local Operative Notes Findings: Hip auto fusion Prosthetic devices, grafts, tissues, transplants, or devices: Depuy pinnacle size 48 pinnacle cup with 2 screws, neutral liner, and Actis size 3 high offset femoral stem with 32 mm +1.5 head with 1 prophylactic cerclage cable Estimated Blood Loss (mL): 350 Patient admitted to the hospital for the above-mentioned procedure. Patient consented to the same. Patient underwent right total hip arthroplasty on March 06, 2023. Patient back in her room recovering well as in stable condition. Patient has mobilize with physical therapy. She will be discharged home today in stable condition. Status at Discharge Cognitive/behavioral status at discharge: at baseline, oriented Functional status at discharge: uses cane/walker Overall status at discharge: patient is progressing back to baseline Exam Vital Signs (past 8 hours): - 03/07/23 08:23 Temperature 97.5 F L Pulse Rate 81 Respiratory Rate 16 Blood Pressure 123/82 Pulse Oximetry 99 Oxygen Flow Rate 0 Oxygen Delivery Method Nasal Cannula Oxygen Flow Rate 0 Narrative Exam Narrative: See progress note Objective Labs 03/07/23 04:25 Labs: Laboratory Results - last 24 hr 03/07/23 04:25 Hgb 10.5 L Hct 31.4 L PFSH Medical History (Updated 02/28/23 @ 10:12 by Heaven Drake RN) Left knee pain Osteoarthritis Migraines History of COVID-19 (11/2021) Hypothyroid Hypertension Surgical History (Updated 02/28/23 @ 10:12 by Heaven Drake RN) H/O: hysterectomy (2005) Hx of cholecystectomy (1995) Hx of tubal ligation (1984) History of section History of hip surgery Family History (Updated 08/12/19 @ 00:16 by DAGOBERTO Escalona) Mother Hypertension Diabetes type 2, controlled Father Hypertension Diabetes mellitus Insulin dependent diabetes mellitus Social History household members: spouse Smoking Status: Never smoker alcohol intake: current Discharge Assessment & Plan Assessment and Plan Assessment: Patient progressing as expected status post right total hip arthroplasty Plan of Treatment: Weightbearing as tolerated, anterior hip precautions Multimodal pain management Aspirin 81 mg b.i.d. for DVT prophylaxis Discharge home today in stable condition Discharge Plan Discharge Plan Patient Disposition: Home Discharge orders & Medications Discharge Orders: Discharge (Order); Ordered 03/07/23 Ordered By: Mejia Bell Prescriptions: New acetaminophen 325 mg Tablet 650 mg PO Q6H Qty: 60 0RF aspirin 81 mg Tablet,Delayed Release (Dr/Ec) 81 mg PO BID Qty: 60 0RF polyethylene glycol 3350 17 gram Powder In Packet 17 gm PO DAILY PRN (Reason: Constipation) Qty: 10 0RF ibuprofen 600 mg Tablet 600 mg PO Q6H Qty: 60 0RF oxycodone 10 mg Tablet 10 mg PO Q6HR PRN (Reason: Pain, Severe (7-10)) Qty: 40 0RF Continued topiramate 25 mg Tablet 50 mg PO BID levothyroxine 50 mcg Tablet 112 mcg PO DAILY losartan 100 mg Tablet 100 mg PO DAILY Discontinued meloxicam 15 mg Tablet 15 mg PO DAILY aspirin 81 mg Capsule 81 mg PO BEDTIME Follow up/Referrals: Henrry Odonnell MD [Physician] - (Two weeks as scheduled) Priya Franks PA-C [Primary Care Provider] - Diet/Activity/Treatments Diet: Diet as Tolerated Activity: Weightbearing as tolerated, anterior hip precautions Cold/Heat Therapy: Ice to hip as needed Skin/Wound/Dressing Care Report to your healthcare provider any signs of infection, such as:: chills, fever, night sweats, increased pain, unusual drainage and unusual redness Dressing: Keep dressing clean and dry. Aníbal monitor we will automatically turn off in 5-7 days. After monitor turned off okay to clip tubing/cut tubing at the base of the dressing cover with half strip of the extra reinforcement strips. Dressing will remain in place until follow up appointment in the office. Visit Report/Discharge Packet Instructions: DI for Hip Replacement, DI for Prescription Opioid Use Stand Alone Forms: Patient Portal/API, Surgery Discharge Discharge Data Primary Care Provider: Priya Franks Attending Provider: Henrry Odonnell VTE Deep Vein Thrombosis/Pulmonary Embolism Present on Admission: No
--- NOTE | 2023-03-07 12:55 | PC.NURSE ---
Discharge Note Patient A&O, VSS, RA. Patient agreeable to discharge plan. PIV discontinued. Patient able to dress self and pack all belongings. Discharge packet reviewed with patient, all questions/concerns addressed. Patient taken down via wheelchair to POV.
--- NOTE | 2023-03-07 13:19 | CM.DANOTE ---
Discharge Planning/Care Management CM Discharge Assessment Start: 03/07/23 13:17 Freq: Status: Active Protocol: Document 03/07/23 13:18 EVA (Rec: 03/07/23 13:19 EVA [id number]) Discharge Planning Assessment Assigned Felt Coverer DERECK Rahman DPOA/Assigned Designee Name Marquis Villasenor, spouse Contact Information [phone] Advance Directives? Yes Advance Directives on File No History Provided By Patient,Medical Record Prior Living Arrangements House Household Members spouse Type of transporation used prior to Drives own vehicle admit Independent with ADL's Yes Is patient alert and oriented? Yes Patient/Family Preference OP PT Therapy Barriers to Discharge No Comment POD1 from right NICHELLE, patient has planned for home and therapies have cleared patient for this plan. No needs identified from this CM team. Discharge Plan Home Transportation Arrangement Spouse Referrals Initiated None needed
== END 2023-03-07 12:40 | disposition home or self-care (01) ==
LOC: OR 08:41 → AC 14:43
PROVIDERS: PCP Physician Assistant Medical; Referring Provider Orthopaedic Surgery Adult Reconstructive Orthopaedic Surgery; Visit Provider Orthopaedic Surgery Adult Reconstructive Orthopaedic Surgery
PROC: (CPT 27130; principal; 2023-03-06 10:15)
DX: M16.11 Unilateral primary osteoarthritis, right hip (principal); M25.751 Osteophyte, right hip; I10 Essential (primary) hypertension
CPT/HCPCS: 27130; 36415; 73502; 76000; 85014; 85018; 94760; 94762; 97161; 97165; 97530; C1776; J0690; J1170; J2250; J2704; J2920; J3010

== ENCOUNTER 2024-04-09 08:54 | Day surgery (SDC) | payer OTHER, SELFPAY ==
[2023-03-06 17:43] VITALS: BMI 39.9
[2024-04-01 13:50] VITALS: BMI 39.9
[2024-04-09] VITALS (12 sets, daily range): BP systolic 125–146; BP diastolic 55–93; PULSE 85–100; RESP 12–17; TEMP 35.9–36.4; O2SAT 96–100; BMI 39.9
--- NOTE | 2024-04-09 06:00 | DI.RAD.S_ITS ---
PROCEDURE: XR KNEE LT 1TO2V INDICATIONS: TKA TECHNIQUE: 2 view(s) of the knee acquired. COMPARISON: None. FINDINGS: Bones: Patient is status post knee joint arthroplasty. Hardware components are in expected positions. Visualized bony structures are intact. Soft tissues: Overlying postoperative changes are noted. IMPRESSION: Expected post-operative appearance of a knee arthroplasty. Dictated by: Gale Addison MD, PhD on 04/09/2024 at 13:23 Approved by: Gale Addison MD, PhD on 04/09/2024 at 13:23
[2024-04-09] MEDS: MELOXICAM 7.5 MG TABLET 15 MG PO (09:49)
[2024-04-09] MEDS: ACETAMINOPHEN 325 MG TABLET 975 MG PO (09:50)
[2024-04-09] MEDS: LACTATED RINGERS 1,000 ML 42 ML IV ×2 (09:55→11:30)
[2024-04-09] MEDS: TRANEXAMIC ACID 1,000 MG VIAL 1000 MG INJ ×2 (10:40→12:22)
[2024-04-09] MEDS: CEFAZOLIN 2 GM/100 ML PREMIX 100 ML IV (10:40)
--- NOTE | 2024-04-09 10:55 | PM.PREOP ---
Pre-operative Note Interval Note History & Physical reviewed/Exam performed by Physician: Yes Changes to H&P: No
--- NOTE | 2024-04-09 11:06 | SUR.OPER ---
Supine on padded OR bed. Pillow under head, arms secured on padded armboards <90 degree abduction. Safety belt across torso. Non-operative leg secured with tape over blanket over lower leg. Operative leg secured in ekaterina positioner. Foam padded brace at thigh of operative leg.
[2024-04-09] MEDS: ROPIVACAINE/EPI/CLONIDINE/KET 50 ML SYRINGE INJ (11:19)
--- NOTE | 2024-04-09 12:47 | P.OP_ITS ---
Operative Date/Time/Diagnoses Date of procedure: 04/09/24 Pre-op diagnosis: Left knee osteoarthritis Post-op diagnosis: same Procedure & Clinicians Procedure: Left total knee arthroplasty Same procedure as scheduled: Yes Surgeon: Henrry Odonnell Insole Tack Puller Hand: Nessa Su Anesthesia Type: Spinal, Sedation and Local Operative Notes Estimated Blood Loss (mL): 150 Tourniquet time (min): 61 Procedure in detail: Left uncemented Gap-Balanced Roosevelt Persona Medial-Congruent Primary Total Knee Arthroplasty Implants: * Size 6 narrow PPS Cruciate Retaining Femoral Component * Size D OsseoTi Tibial Component * Size 11 Medial Congruent Polyethylene Insert * Unresurfaced Patella Procedure Summary: This 53-year-old female patient had extremely low range of motion coming into surgery. I would estimate that her range of motion was from approximately 20-70 degrees. Given her young age strongly desired to use uncemented fixation to provide a long-term biologic zurita and found that her bone quality was sufficient to allow for this. I did note that a crack developed along the trajectory of 1 of the pins for the tibial cut in the posterior medial portion of the proximal tibia as shown in the photograph below. Given the uncemented design and biologic zurita of of the implant as well as the stable nature of the crack, which did not have any mobility relative to the remainder of the tibia, I continued with my initial plan for uncemented fixation and was able to position a peripheral peg posterior medial portion of the tibia on the medial side of the crack. I also placed some bone graft into it. It exited out the anterior portion of the cortex and extended slightly distally, but did not displace. The termination was proximal to the MCL. Procedure in Detail: This patient was seen preoperatively and evaluated for knee pain which was refractory to numerous nonoperative treatment modalities. Their pain correlated with radiographic changes demonstrating significant degeneration in the knee joint. The risks and benefits of continued nonoperative management versus operative management were discussed at length and all of the patient?s questions were answered. Additional educational materials providing further details beyond our discussion in clinic were provided via a publicly available patient education video which included the incidence of medical complications associated with total knee arthroplasty, reasons for revision following total knee arthroplasty, and patient satisfaction rates following total knee arthroplasty. That video can be accessed at [email or web address] . With this understanding of the risks inherent to the procedure, the patient elected to move forward with operative management. Following preoperative optimization, the patient was scheduled for surgery. The patient was met in the preoperative holding area the day of the procedure and all questions were answered. The patient?s nares were swabbed with betadine in order to decolonize them from MRSA. Informed consent was signed and the left limb was marked with indelible ink.? The patient was brought back to the operating room where anesthesia was induced. The patient was transferred to the operating table and all bony prominences were padded. The operative site was prepped and draped in the usual sterile fashion. A second prep stick was utilized following drape placement. The incision was marked corresponding to the medial aspect of the tibial tubercle and the patella. Ioban was wrapped circumferentially around the knee. Prior to incision, tranexamic acid and cefazolin were administered. Templating images were displayed. A timeout procedure was performed verifying the patient?s identity, medical comorbidities, allergies, relevant medications, anesthesia type and the surgical plan. All present were in agreement. The assistance of a physician assistant production editor was required for positioning, room setup, soft tissue retraction and wound closure. Without this assistance, the procedure would have been significantly more challenging and time consuming.?? The tourniquet was inflated prior to incision. I made an anterior incision over the knee, dissected through the subcutaneous tissues and identified the lateral border of the VMO. Medial and lateral soft tissue flaps were developed. A medial parapatellar arthrotomy was performed ensuring that adequate capsular tissue would remain for closure at the conclusion of the procedure. The hip was brought into extension and the medial soft tissues were released off the joint line of the tibia. Tissue overlying the distal anterior femur was released to allow for later assessment for anterior notching but left in place. A portion of the retropatellar fat pad was excised while protecting the patellar tendon. The patella was everted. The patella was not resurfaced. Osteophytes were excised and a lateral facetectomy was performed. The patella was released from its everted position.?? I flexed the knee to 90 degrees and placed retractors to allow access to the notch. An opening reamer was used to gain access to the femoral canal and an intramedullary sendy was introduced into the canal. Diaphyseal fit was obtained in order to allow a distal femoral resection at 5 degrees relative to the anatomic axis, thereby aiming to achieve mechanical alignment of the eventual implant. A +2 resection was planned and assessed using an jo wing. I then made the cut using a sagittal saw. This provided additional access to the femoral notch. The ACL and PCL were excised. Retractors were placed on the lateral and medial tibia. I hyperflexed the knee while externally rotating it to sublux the tibia anteriorly. I placed a PCL retractor posteriorly and used this to provide additional anterior subluxation. The remainder of the PCL root was released. An intramedullary reamer was used in the ACL footprint to provide access to the tibial canal. An extramedullary guide was positioned to allow a resection perpendicular to the anatomic and mechanical axes of the tibia, thereby aiming to achieve mechanical alignment of the eventual implant. A +6 resection off the lateral tibia was planned and the tibial cutting jig was pinned in place. I evaluated the cut depth, varus-valgus alignment and slope of the planned tibial resection and deemed them satisfactory. I cut the tibia with a sagittal saw while using retractors to protect the MCL, patellar tendon, and posterolateral structures.? The knee was repositioned in extension and the Fuzion soft tissue balancing gauge was introduced. This demonstrated that there was equal tension in the medial and lateral compartments of the knee with the knee in full extension and no additional soft tissue releases were necessary. When 60 pounds of force was applied to the Fuzion device, the extension gap opened to 10 mm. I moved the knee into 90 degrees of flexion, and the Fuzion device was recalibrated by removing a 9 mm stanford to allow assessment of the flexion gap. The Fuzion was placed perpendicular to the resected surface of the tibia and the resected surface of the distal femur. Sixty pounds of traction was applied to match the tension of the extension gap. This externally rotated the femur to 5 degrees. Pins were placed in the 10 mm holes. The measured resection guide was placed over the pins to allow sizing. Appropriate sizing was determined and a 4-in-1 block was placed. This was double checked using the Fuzion device to ensure that it would open to an equal distance as the extension gap when the same amount of force was applied. The Fuzion block was also used to assess flexion gap symmetry. An jo wing was used to ensure there would be no anterior notching. Retractors were placed to protect the soft tissues during resection. Captured cuts were performed with a sagittal saw for the anterior and posterior femur as well as the corresponding chamfers.? Trial components were placed and the construct was assessed. Range of motion was assessed by ensuring the knee could achieve full extension and assessing maximum passive knee flexion by elevating the femur and allowing the heel to passively fall towards the buttock. Gap symmetry was assessed by stressing the medial and lateral compartments in both extension and flexion. Laxity was assessed in both extension and flexion and the polyethylene trial was adjusted with shims as necessary. Patellar tracking was assessed with knee flexion. Once satisfied with the construct, I moved forward with implant insertion. Lug holes were drilled in the femur and the tibia was prepped ensuring appropriate sizing and rotation relative to the tibial tubercle.?? It was at this time that I noted the crack in the tibia. This appeared to have propagated from the cut tibial surface through the trajectory of 1 of the pin holes from the tibial cutting guide exiting out the medial cortex. After close inspection I determined that it was not mobile relative to the remainder of the tibia and elected to bone graft it through the area where it exited the cortex. I positioned the tibial component so that a peg would be positioned in the posterior medial portion and would capture that. I impacted the tibial component into place. The tibia was reduced underneath the femur.. I placed the femoral component as well as the intended polyethylene trial. The knee was bathed in a dilute mixture of betadine and peroxide. A mixture of Ropivacaine, Epinephrine, Clonidine and Toradol was infiltrated throughout the soft tissues into structures including the VMO, patellar tendon, quadriceps tendon, MCL and femoral periosteum. A low adductor canal block was also performed using this mixture unless one had been placed preoperatively by anesthesia. The knee was copiously irrigated with pulse lavage. Range of motion was assessed by ensuring the knee could achieve full extension and assessing maximum passive knee flexion by elevating the femur and allowing the heel to passively fall towards the buttock. Gap symmetry was assessed by stressing the medial and lateral compartments in both extension and flexion. Laxity was assessed in both extension and flexion and the polyethylene trial was adjusted with shims as necessary. Patellar tracking was assessed with knee flexion. The tourniquet was let down and the polyethylene trial was removed. I inspected the knee inspected for excess cement and any residual bleeding. Once hemostasis was achieved I inserted the final polyethylene and ensured appropriate engagement of the dovetail locking mechanism.?? The arthrotomy was closed with absorbable interrupted suture ensuring that this extended to the top of the arthrotomy. This was backed up with running barbed suture throughout the arthrotomy. The skin was closed with 2-0 and 3-0 sutures. Surgical glue was applied and a soft dressing was placed.?The sponge, instrument and needle counts were reported as being correct at the end of the case.??No obvious complications occurred. The patient was transferred from the operating table back to a stretcher. The patient emerged from anesthesia without difficulty and was taken to the PACU in a stable condition.? Plan for aftercare: * Weightbearing as tolerated * Mobilization as soon as the patient has recovered from anesthesia. If physical therapists are unavailable at the time the patient is ready to ambulate, then nursing staff should help patient ambulate * Aspirin 81 twice per day for DVT prophylaxis * Multimodal pain regimen with no IV opioids ordered * Anticipate discharge home later today * Follow up at [facility] in 2 weeks * Detailed postoperative instructions available at [email or web address]
[2024-04-09] MEDS: ACETAMINOPHEN 325 MG TABLET 650 MG PO (14:27)
[2024-04-09] MEDS: TRAMADOL 50 MG TABLET PO (14:27)
[2024-04-09] MEDS: LACTATED RINGERS 1,000 ML 100 ML IV (14:28)
--- NOTE | 2024-04-09 15:43 | PM.PN.1 ---
Subjective Subjective Interval history: Patient seen postoperatively. Resting comfortably. No significant pain. Intact peroneal nerve function. Clean dressing. Anticipate mobilization with PT and DC later today. Exam Vital Signs (past 8 hours): - 04/09/24 09:25 04/09/24 13:04 04/09/24 13:08 Temperature 97 F L 97.2 F L Pulse Rate 100 H 96 H 94 H Respiratory Rate 14 14 14 Blood Pressure 140/79 125/70 146/82 H Pulse Oximetry 99 99 96 Oxygen Delivery Method Room Air Room Air Room Air Oxygen Flow Rate 04/09/24 13:14 04/09/24 13:19 04/09/24 13:24 Temperature 97.2 F L Pulse Rate 90 88 85 Respiratory Rate 15 13 12 Blood Pressure 127/55 L 129/63 Pulse Oximetry 96 97 97 Oxygen Delivery Method Room Air Room Air Room Air Oxygen Flow Rate 04/09/24 13:39 04/09/24 14:02 Temperature 96.7 F L 97.6 F Pulse Rate 94 H 92 H Respiratory Rate 17 14 Blood Pressure 142/70 H 142/70 H Pulse Oximetry 97 98 Oxygen Delivery Method Oxygen Flow Rate 0 0 Oxygen Delivery Method Room Air Oxygen Flow Rate 0 PFSH Medical History (Updated 02/28/23 @ 10:12 by Heaven Drake RN) Left knee pain Osteoarthritis Migraines History of COVID-19 (11/2021) Hypothyroid Hypertension Surgical History (Updated 04/01/24 @ 14:16 by Vanesa Silva RN) History of total right hip arthroplasty (02/2024) H/O: hysterectomy (2005) Hx of cholecystectomy (1995) Hx of tubal ligation (1984) History of section History of hip surgery Family History (Updated 08/12/19 @ 00:16 by DAGOBERTO Escalona) Mother Hypertension Diabetes type 2, controlled Father Hypertension Diabetes mellitus Insulin dependent diabetes mellitus Social History household members: spouse Smoking Status: Never smoker alcohol intake: current Assessment & Plan Time-Based Coding :: [TOTAL MINUTES] spent with patient and on the chart (including review of chart, obtaining history, exam, reviewing outside data, placing orders, documenting exam and treatment plan, and counseling patient) on [DATE]. Quality VTE Deep Vein Thrombosis/Pulmonary Embolism Present on Admission: No
--- NOTE | 2024-04-09 16:35 | PT.IIE ---
Current Diagnoses Unilateral primary osteoarthritis, left knee (04/09/24) Surgery Performed Operation Date: 04/09/24 10:15 Actual Procedures p Total Knee Arthroplasty(Left) - Henrry Odonnell MD Surgical History (Last Updated 04/01/24 @ 14:16 by Vanesa Silva, MARK) H/O: hysterectomy (2005) History of section History of hip surgery History of total right hip arthroplasty (02/2024) Hx of cholecystectomy (1995) Hx of tubal ligation (1984) Medical History (Last Updated 02/28/23 @ 10:12 by Heaven Drake RN) History of COVID-19 (11/2021) Hypertension Hypothyroid Left knee pain Migraines Osteoarthritis Physical Therapy Inpatient Evaluation/Re-Eval M1 PT/OT-IP Prior Functional Status Start: 04/09/24 17:44 Freq: NEEDED Status: Discharge Protocol: Document 04/09/24 16:35 AB (Rec: 04/09/24 17:53 AB [id number]) Medical Review Prior Functional Status Medical History Reviewed Yes Communication able to make needs known Mobility and Gait pt stated that she was independent with all mobilities and ambulation without AD Social History Household Members spouse Living Arrangements House Number of Floors (Floors) One Floor Number of Stairs To Enter/Railing? 2 steps B rails to enter Home Environment High Toilet,Walk in Shower Home Equipment Front Wheel Walker,Four Wheel Walker,Shower Seat with Backrest,Hand Held Shower,Grab Bars Near Toilet,Grab Bars In Shower Additional Social History Comment pt has an adjustable bed M2 PT-IP Current Condition Start: 04/09/24 17:44 Freq: NEEDED Status: Discharge Protocol: Document 04/09/24 16:35 AB (Rec: 04/09/24 17:53 AB [id number]) Physical Therapy Current Condition Current Condition Evaluation Date 04/09/24 Treatment Diagnosis s/p L TKA; difficulty in walking Onset Date 04/09/24 M3 PT-IP Subjective Start: 04/09/24 17:44 Freq: NEEDED Status: Discharge Protocol: Document 04/09/24 16:35 AB (Rec: 04/09/24 17:53 AB [id number]) Subjective Physical Therapy Visit Type Type Initial Evaluation Visit Start Time 16:35 Visit Stop Time 17:10 Number of SLOT SHIFT SUPERVISOR Visits 0 Physical Therapy Visit Comments Patient Comments agreeable to do PT Therapy Pain Assessment Pain When Pain Assessed At Rest Pain Present Pain Present Pain Reported Location left knee Intensity 3 Scale Used Numeric (0 - 10) Pain Management Techniques Apply Cold,Distraction, Elevation,Modification of Treatment,Re-positioning, Timing of Activity with Medications M4 PT-IP Mobility and Gait Start: 04/09/24 17:44 Freq: NEEDED Status: Discharge Protocol: Document 04/09/24 16:35 AB (Rec: 04/09/24 17:53 AB [id number]) PT-Bed Mobility Assessment Supine to Sit Supine to Sit Standby Assistance Sit to Supine Sit to Supine Standby Assistance PT-Transfer Assessment Sit to and From Stand Sit to and from Stand Standby Assistance,Contact Guard Assistance,1 Person Assistance,Use of Upper Extremities Equipment Transfer Assistive Device Gait Belt,Front Wheeled Walker Orthotic/Prosthetic Devices or Brace: No Transfers Transfer Destination Bed,Chair Transfer Technique ambulated Transfer Ability Level of Assist Standby Assistance,Contact Guard Assistance,1 Person Assistance,Use of Upper Extremities Comments Mobility Comments pt sitting on the chair and agreeable to do PT. spouse in room. pt wants to go home today. obtained PLOF and home set up. reviewed HEP with pt and spouse. pt completed sit to stand CGA and ambulated to the bed using FWW CGA. pt completed sit<>supine SBA. caregiver training conducted. spouse was able to put safety belt on. pt completed sit to stand from the EOB SBA and ambulated in the hallway using FWW SBA ~ 75 ft. educated spouse on how to assist pt if needed. stair climbing training. pt completed up/down steps using B rail min A and spouse was able to assist pt. assisted pt back to the room. ambulated from w/c to chair sBA using FWW. positioned pt on the chair. call light and table placed within reach. Gait Assessment Gait Gait Assistance Required: Standby Assistance,Contact Guard Assist Distance (Feet) 75 Able to Maintain Weight Bearing Status Yes During Gait Assistive Devices Assistive Device Gait Belt,Front Wheeled Walker Orthotic/Prosthetic Devices or Brace: No Gait Deviations General Gait Pattern Antalgic,Decreased Stride Length,Decreased Feet Clearance Factors Limiting Gait Function Factors Limiting Gait Function Decreased Activity Tolerance, Decreased Strength,Limited Range of Motion,Pain,Poor Balance Stair Climbing Assessment Evaluation Level of Assist On Stairs Minimal Assistance Devices Stair Climbing Assistive Devices Left Railing,Right Railing Technique/Endurance Stair Climbing Direction Ascend and Descend Stair Climbing Technique Step to Step Number of Steps Climbed 3 Query Text: Stair Climbing Set # Repetitions (reps) 1 PT-Balance Assessment Sitting Balance and Reactions Static Sitting Balance Ability Normal Dynamic Sitting Balance Ability Good Standing Balance and Reactions Static Standing Balance Ability Good Dynamic Standing Balance Ability Fair Device Used FWW M5 PT-IP Objective Assessments Start: 04/09/24 17:44 Freq: NEEDED Status: Discharge Protocol: Document 04/09/24 16:35 AB (Rec: 04/09/24 17:53 AB [id number]) Orientation Orientation/Cognition Level of Alertness Alert Orientation Name,Place,Situation Language Function Ability No Deficits Noted Safety Awareness Understands Safety Issues Memory Description No Deficits Noted Coordination Assessment Gross Coordination Gross Coordination WNL Sensation Assessment Sensation Gross Sensation WNL Muscle Tone Muscle Tone WNL Yes M6 PT-IP Treatment Start: 04/09/24 17:44 Freq: NEEDED Status: Discharge Protocol: Document 04/09/24 16:35 AB (Rec: 04/09/24 17:53 AB [id number]) Physical Therapy Treatment Education Education Provided Precautions,Weight Bearing Status,Post-Op Packet,Safety M7 PT-IP Assessment and Plan Start: 04/09/24 17:44 Freq: NEEDED Status: Discharge Protocol: Document 04/09/24 16:35 AB (Rec: 04/09/24 17:53 AB [id number]) PT Summary Assessment and Plan Potential Rehabilitation Potential Good Status of Condition at Evaluation Stable Summary Impairments Pain,ROM,Strength,Balance,Bed Mobility,Transfers,Gait, Activity Tolerance Assessment Summary pt is a 53 y/o F s/p L TKA POD 0. pt requiring SBA to CGA for transfers and ambulation and min A for stair climbing. spouse was able to assist pt with mobility. pt may go home when medically stable. Goals Bed Mobility Goal Independent Transfer Goal Independent,Front Wheeled Walker Gait Goal Independent,Front Wheel Walker Gait Distance 300 Other Goals up/down 2 steps B rails mod I Days to Meet Goals 5 Frequency of Treatment Frequency Of Treatment Twice a Day Treatment Plan Physical Therapy Treatment Plan Bed Mobility Training,Transfer Training,Gait Training, Therapeutic Exercise,Balance Retraining,Post Op Education, Discharge Planning,Hot or Cold Pack,Neuromuscular Re-ed, Coordination Retraining,Manual Therapy Weight Bearing Status Weight Bearing Status Weight Bear as Tolerated Allowed Weight Bearing Amount (enter % LLE WBAT or #) (%) Recommendations To Nursing Amount of Assist Needed 1 Person Assist Discharge Recommendations PT Discharge Recommendations Home with Assistance, Outpatient PT Transportation Needs at Discharge Private Vehicle
== END 2024-04-09 17:49 | disposition home or self-care (01) ==
LOC: OR 08:54 → AC 10:36
PROVIDERS: PCP Physician Assistant Medical; Referring Provider Orthopaedic Surgery Adult Reconstructive Orthopaedic Surgery; Visit Provider Orthopaedic Surgery Adult Reconstructive Orthopaedic Surgery
PROC: 0SRD0JZ Replacement of Left Knee Joint with Synthetic Substitute, Open Approach (ICD-10-PCS; CPT 27447; principal; 2024-04-09 10:15)
DX: M17.12 Unilateral primary osteoarthritis, left knee (principal); M25.762 Osteophyte, left knee
CPT/HCPCS: 27447; 73560; 97161; 97530; C1776; J0690; J1100; J2250; J2405; J2704; J3010